=== PATIENT | male | born 1955 | race Caucasian/White ===

== ENCOUNTER → 2017-07-17 09:45 | Outpatient (CLI) | payer OTHER, SELFPAY ==
[2017-07-17 12:22] LABS: ALB/GLOB Ratio 1.2 RATIO (0.9-2.4); AST(SGOT) 15 U/L (15-37); Alanine Aminotransfer ALT/SGPT 30 U/L (16-61); Albumin, Serum 3.7 g/dL (3.2-5.0); Alkaline Phosphatase 62 U/L (45-117); Anion Gap 7 (5-15); BUN 15 mg/dL (7-18); BUN/Creat Ratio 19.5 RATIO (10-20); Calcium,Total 8.7 mg/dL (8.5-10.1); Chloride 105 mmol/L (98-107); Cholesterol 180 mg/dL (200); Creatinine, Serum 0.77 mg/dL (0.70-1.30); EST Glomerular Filtration Rate 109 mL/min (>60); Est Glom Filt Rate - Afr Amer 132 mL/min (>60); Globulin 3.1 g/dL (2.2-4.2); Glucose 82 mg/dL (74-106); High Density Lipoprotein 56 mg/dL; PSA,Total - Annual Screen 1.62 ng/mL (0.00-4.00); Potassium 4.1 mmol/L (3.5-5.1); Protein, Total 6.8 g/dL (6.4-8.2); Sodium Level 141 mmol/L (136-145); Thyroid Stim Hormone (TSH) 1.78 uIU/mL (0.358-3.74); Triglycerides 63 mg/dL; Very Low Density Lipoprotein 13 mg/dL (5-40)
[2017-07-17 12:23] LABS: Hemoglobin 15.4 g/dl (13.0-16.5); Mean Corp Hgb Conc 34.2 g/gl (32-36); Mean Corpuscular Volume 90.7 fL (80-94); Mean Platelet Vol. 10.3 fl (6.2-12.0); Platelet Count 210 K/mm3 (150-450); RBC Distribution Width CV 13.7 % (11.6-14.6); RBC Distribution Width SD 45.1 fl (35.1-43.9); Red Blood Count 4.96 M/mm3 (4.6-6.2); White Blood Count 4.7 K/mm3 (4.4-11.0)
[2017-07-17 12:27] LABS: Scan Indicated on CBC? Y/N NO
[2017-07-18 09:55] LABS: Vitamin B12 525 pg/mL (211-911)
== END ==
PROVIDERS: Family Provider Family Medicine; PCP Family Medicine; Visit Provider Family Medicine
DX: Z00.00 Encounter for general adult medical examination without abnormal findings (principal); N40.0 Benign prostatic hyperplasia without lower urinary tract symptoms; R53.83 Other fatigue
CPT/HCPCS: 36415; 80053; 80061; 82306; 82607; 84153; 84443; 85027; G0103

== ENCOUNTER → 2017-12-27 15:58 | Outpatient (CLI) | payer OTHER, SELFPAY ==
[2017-12-27 18:35] LABS: T4 Free Direct 0.98 ng/dL (0.76-1.46); Thyroid Stim Hormone (TSH) 1.43 uIU/mL (0.358-3.74)
== END ==
PROVIDERS: Family Provider Family Medicine; PCP Family Medicine; Referring Provider Internal Medicine Pulmonary Disease; Visit Provider Internal Medicine Pulmonary Disease
DX: G25.81 Restless legs syndrome (principal); G47.33 Obstructive sleep apnea (adult) (pediatric); G47.10 Hypersomnia, unspecified
CPT/HCPCS: 36415; 84439; 84443

== ENCOUNTER → 2019-06-12 16:22 | Outpatient (CLI) | payer OTHER, SELFPAY ==
--- NOTE | 2019-06-12 16:27 | RAD_ITS ---
STUDY: X-RAY - LEFT FOOT CLINICAL: Male, 63 years old. Left foot pain off and on x 1 year, shut it in a car door -- plantar/mid foot TECHNIQUE: Pain. view(s) of the foot. COMPARISON: None. FINDINGS: Normal talus, calcaneus, and tarsal bones. Normal visualized subtalar, talonavicular, calcaneocuboid, tarsal and tarsometatarsal articulations. Normal metatarsi. Normal metatarsophalangeal joint of the great toe. Normal tibial and fibular sesamoid bones. Normal interphalangeal joint of the great toe. Normal phalanges of the great toe. Normal second through fifth metatarsophalangeal joints. Normal interphalangeal joints and phalanges of the lesser toes. The soft tissue structures are unremarkable. There is no demonstrated fracture. RAD/Foot min 3 Views IMPRESSION: Normal x-ray examination of the foot. Electronically Signed: Tien Tomas MD at 16:40 EDT , Service support ,
== END ==
PROVIDERS: PCP Family Medicine; Referring Provider Family Medicine; Visit Provider Family Medicine
DX: M79.672 Pain in left foot (principal)
CPT/HCPCS: 73630

== ENCOUNTER → 2019-06-13 07:03 | Outpatient (CLI) | payer OTHER, SELFPAY ==
[2019-06-13 10:29] LABS: Anion Gap 5 (5-15); BUN 16 mg/dL (7-18); Calcium,Total 8.8 mg/dL (8.5-10.1); Chloride 104 mmol/L (98-107); Cholesterol 210 mg/dL (200); EST Glomerular Filtration Rate 103 mL/min (>60); Est Glom Filt Rate - Afr Amer 125 mL/min (>60); Glucose 96 mg/dL (74-106); High Density Lipoprotein 50 mg/dL; PSA,Total - Annual Screen 1.94 ng/mL (0.00-4.00); Potassium 3.7 mmol/L (3.5-5.1); Sodium Level 136 mmol/L (136-145); Triglycerides 99 mg/dL; Very Low Density Lipoprotein 20 mg/dL (5-40)
== END ==
PROVIDERS: PCP Family Medicine; Referring Provider Family Medicine; Visit Provider Family Medicine
DX: Z00.00 Encounter for general adult medical examination without abnormal findings (principal); N40.0 Benign prostatic hyperplasia without lower urinary tract symptoms
CPT/HCPCS: 36415; 80048; 80061; 84153; G0103

== ENCOUNTER → 2020-08-03 07:22 | Outpatient (CLI) | payer OTHER, SELFPAY ==
[2020-08-03 10:38] LABS: Anion Gap 3 (5-15); BUN 17 mg/dL (7-18); BUN/Creat Ratio 22.8 RATIO (10-20); Calcium,Total 9.2 mg/dL (8.5-10.1); Chloride 105 mmol/L (98-107); Cholesterol 208 mg/dL (200); Creatinine, Serum 0.75 mg/dL (0.70-1.30); EST Glomerular Filtration Rate 112 mL/min (>60); Est Glom Filt Rate - Afr Amer 135 mL/min (>60); Glucose 97 mg/dL (74-106); High Density Lipoprotein 52 mg/dL; Potassium 3.9 mmol/L (3.5-5.1); Sodium Level 141 mmol/L (136-145); Triglycerides 127 mg/dL; Very Low Density Lipoprotein 25 mg/dL (5-40)
== END ==
PROVIDERS: PCP Family Medicine; Referring Provider Family Medicine; Visit Provider Family Medicine
DX: N40.0 Benign prostatic hyperplasia without lower urinary tract symptoms (principal); Z13.1 Encounter for screening for diabetes mellitus; Z13.220 Encounter for screening for lipoid disorders
CPT/HCPCS: 36415; 80048; 80061; 84153; G0103

== ENCOUNTER → 2020-08-04 16:11 | Outpatient (CLI) | payer OTHER, SELFPAY ==
--- NOTE | 2020-08-04 16:14 | RAD_ITS ---
STUDY: X-RAY CHEST REASON FOR EXAM: Male, 65 years old. CHEST PAIN TECHNIQUE: PA and lateral views of the chest. COMPARISON: Comparison is made with prior study dated 07/13/2012. FINDINGS: There is hyperinflation of the lungs consistent with chronic obstructive lung disease (COPD). Scattered calcified granulomas. There is no demonstrated pleural abnormality. Normal size heart. Normal mediastinum and sánchez. There is prominence of the pulmonary hilar arteries without peripheral pulmonary vascular congestion, suggesting pulmonary hypertension. There is atherosclerotic calcification of the aortic arch with tortuosity. There are diffuse degenerative changes of the visualized thoracic spine. Normal visualized ribs, clavicles, and shoulders. Small hiatal hernia. RAD/Chest PA and Lateral IMPRESSION: Hyperinflation. Scattered calcified granulomas. Electronically Signed: Rajinder Pike MD at 11:06 EDT , Service support ,
== END ==
PROVIDERS: PCP Family Medicine; Referring Provider Family Medicine; Visit Provider Family Medicine
DX: R07.9 Chest pain, unspecified (principal)
CPT/HCPCS: 71046

== ENCOUNTER 2020-08-05 09:40 | Inpatient (IN) | payer OTHER, MEDICARE, SELFPAY ==
[2020-08-05] VITALS (19 sets, daily range): BP systolic 102–156; BP diastolic 57–80; PULSE 55–100; RESP 14–27; TEMP 36–37.3; O2SAT 93–100; BMI 29.4; BMI 29.5
--- NOTE | 2020-08-05 09:50 | EKG12_ITS ---
Test Reason : CP Blood Pressure : / mmHG Vent. Rate : 061 BPM Atrial Rate : 061 BPM P-R Int : 174 ms QRS Dur : 122 ms QT Int : 464 ms P-R-T Axes : 049 068 038 degrees QTc Int : 467 ms Normal sinus rhythm Non-specific intra-ventricular conduction delay Nonspecific ST abnormality Abnormal ECG Confirmed by CHRISTOPHE DERAS, THERESA ([id number]), publications editor ALEX GONZALEZ ([id number]) on 08/09/2020 2:27:18 PM Referred By: Kodak Gonzalez Confirmed By:THERESA SAEED MD
--- NOTE | 2020-08-05 09:51 | EDS_ITS ---
HPI History of Present Illness Chief Complaint: Chest Pain Informant: patient, spouse/S.O. and EMS Narrative Narrative: 65-year-old male presenting for the evaluation of chest pain via EMS. Patient states that about 45 minutes prior to arrival his chest pain began and was constant. No relief with 1 nitroglycerin and aspirin by EMS. Patient states that he was having it during the night intermittently that was keeping him up. He states that it is hard for him to describe what it feels like but believes it to be sharp. He states that over the past year he has had some chest discomfort with exertion. He saw his doctor yesterday and they did an EKG and chest x-ray. They state that the he is scheduling him for a stress test. Patient notes he had a stress test many years ago. He states he is treated for restless leg, BPH, and sleep apnea. He denies any recent illnesses. Patient had recent cholesterol screening showed a total cholesterol of 208 with a slightly elevated LDL level. He is a current smoker. [facility] Medical History BPH (benign prostatic hyperplasia) BPH (benign prostatic hyperplasia) Erectile disorder, acquired, situational, mild Erectile disorder, acquired, situational, mild CHARBEL (obstructive sleep apnea) Restless leg syndrome Allergy/AdvReac Type Severity Reaction Status Date / Time bee venom protein (honey bee) Allergy Angioedema Verified 08/05/20 09:50 cashew nut Allergy Anaphylaxis Verified 08/05/20 09:50 Pistacia Vera (Pistachio) Allergy Anaphylaxis Verified 08/05/20 09:50 Family History (Updated 08/05/20 @ 14:[address] Gregorio Wade DO) Other CAD (coronary artery disease) Social History household members: spouse Smoking Status: Current every day smoker substance use type: does not use ROS ROS ED Constitutional Constitutional ED: Denies chills or weight loss Eyes Eyes: Denies change in vision or diplopia ENT ENT ED: Denies ear pain, rhinorrhea or sore throat Cardiovascular Cardiovascular: Reports chest pain; Denies orthopnea, palpitations or racing heartbeat Respiratory/Chest Respiratory/Chest: Reports dyspnea and dyspnea on exertion; Denies cough or orthopnea Gastrointestinal Gastrointestinal: Denies abdominal pain, diarrhea, nausea or vomiting Genitourinary Genitourinary ED: Denies dysuria, hematuria or urinary frequency Musculoskeletal Musculoskeletal: Denies arthralgias or myalgias Integumentary Denies abscess or rash Neurologic Neurologic: Denies headache(s) or weakness Psychiatric Psychiatric: Denies anxiety, depression, suicidal ideation or suicidal thoughts Endocrine Endocrinology: Denies polydipsia, polyphagia or polyuria Allergic/Immunologic Allergic/Immunologic ED: Denies mouth swelling, tongue swelling or urticaria EXAM Physical Exam Const Vital Signs: 08/05/20 09:41 08/05/20 10:01 08/05/20 10:06 Temperature 96.8 F L Temperature Source Temporal Pulse Rate 100 60 70 Respiratory Rate 22 H Blood Pressure 156/74 H 143/80 H 148/80 H Blood Pressure Mean 101 Pulse Ox 99 Oxygen Delivery Method Room Air 08/05/20 10:11 Temperature Temperature Source Pulse Rate 64 Respiratory Rate 14 Blood Pressure 152/78 H Blood Pressure Mean 102 Pulse Ox 100 Oxygen Delivery Method Room Air Positive well nourished and well developed General Appearance ED: well developed and other Patient lying in the bed holding his chest appears uncomfortable HEENT Reports normocephalic, head/scalp atraumatic and moist mucous membranes Eyes PERRL and EOMs intact bilaterally Neck no lymphadenopathy, supple and no JVD Resp normal respiratory effort and clear to auscultation bilaterally Cardio regular rate, regular rhythm and no murmurs GI normal to inspection, nondistended, normoactive bowel sounds and non-tender Palpation: soft Back/Spine no CVA tenderness and normal ROM Extremity normal to inspection General Extremety ED: Negative for edema General Extremity: Negative for edema Neuro oriented x3 and CN's II-XII intact bilaterally Sensorium / Orientation: alert Motor Exam: strength 5/5 throughout Psych mental status grossly normal Mood & Affect: Negative for depressed or tearful Skin no rashes or lesions noted and no wounds MDM MDM MDM Narrative Medical decision making narrative: The patient chest x-ray on my interpretation shows no acute process. Normal mediastinal silhouette. Patient received a nitro series which minimally improved his pain. He also received a dose of morphine. His troponin returns at 0.11. Normal creatinine. White count at 7.6. Patient has already received aspirin. I spoke with on-call community service aide Dr. Gonzalez. He has come to the emergency department to see the patient. Patient will receive a dose of heparin additional dose of morphine. Plan will be to take him directly to the [facility]. Lab Data Attestation: I reviewed the patient's lab results. Labs: Laboratory Results - last 24 hr 08/05/20 08/05/20 08/05/20 09:30 09:30 09:30 WBC 7.6 RBC 4.99 Hgb 15.1 Hct 44.5 MCV 89.2 MCH 30.3 MCHC 33.9 RDW Std Deviation 43.5 RDW Coeff of César 13.2 Plt Count 217 MPV 10.3 Immature Gran % (Auto) 0.300 Neut % (Auto) 62.7 Lymph % (Auto) 26.4 [place] % (Auto) 9.4 Eos % (Auto) 0.8 Baso % (Auto) 0.4 Absolute Neuts (auto) 4.8 Absolute Lymphs (auto) 2.02 Nucleated RBC % 0 PT 11.9 INR 0.9 APTT 24.3 D-Dimer Quant (PE/DVT) <= 0.27 Sodium 138 Potassium 3.3 L Chloride 103 Carbon Dioxide 26.0 Anion Gap 9 BUN 18 Creatinine 0.86 Estim Creat Clear Calc 93.99 Est GFR (MDRD) Af Amer 115 Est GFR (MDRD) Non-Af 95 BUN/Creatinine Ratio 20.9 H Glucose 149 H Calcium 9.1 Magnesium 2.3 Total Bilirubin 0.90 AST 16 ALT 27 Alkaline Phosphatase 70 Troponin I 0.110 H Total Protein 7.0 Albumin 3.8 Globulin 3.2 Albumin/Globulin Ratio 1.2 Lipase 68 L Radiography Diagnostic Testing: Radiology Impression Chest X-Ray 08/05/20 09:59 IMPRESSION: Hyperinflation. Prominent central pulmonary arteries. Electronically Signed: Rajinder Pike MD at 10:13 EDT , Service support , EKG Initial EKG: Attestation: I personally reviewed and interpreted this EKG as follows: Comments: Initial EKG performed at 0943 hours demonstrates a normal sinus rhythm with nonspecific ST abnormality. Rate is 61 bpm. There is some slight depression noted in V3. Follow-up EKG: Attestation: I personally reviewed and interpreted this EKG as follows: Comments: Repeat EKG demonstrates a sinus rhythm at a rate of 70. The ST depression in V3 appears improved. Critical Care Time Critical care time (excluding procedures): 30-74 minutes (35 minutes), Discussing w/Patient &/or Family/Full Fashioned Garment Knitter, Discussing w/Consultants, Arranging Admission or Transfer and Performing Direct Patient Care at Bedside Discharge Plan Triage Chief Complaint: Chest Pain ED Provider: Ralph Romero Dx/Rx/DC Orders Clinical Impression: NSTEMI, initial episode of care Primary Care Provider: Isrrael Anna Disposition Disposition: Acute Care Hospital [facility] Discharge Date/Time: 08/05/20 11:01
[2020-08-05 09:58] LABS: Absolute Lymphocyte Count 2.02 X10^3/uL (0.83-4.51); Absolute Neutrophil Count 4.8 X10^3/uL (2.0-7.7); Basophil# 0.03 X10^3/uL; Basophil% 0.4 % (0-1); Eosinophil# 0.06 X10^3/uL; Eosinophils% 0.8 % (0-5); Hematocrit 44.5 % (40-54); Hemoglobin 15.1 g/dL (13.0-16.5); Lymphocyte # 2.02 X10^3/ul (0.83-4.51); Lymphocyte % 26.4 % (19-41); Mean Corp Hgb Conc 33.9 g/dL (32-36); Mean Corpuscular Hgb 30.3 pg (27.0-32.0); Mean Corpuscular Volume 89.2 fL (80-94); Mean Platelet Vol. 10.3 fl (6.2-12.0); Monocyte# 0.72 X10^3/uL; Monocyte% 9.4 % (0-10); NRBC Flagged by Analyzer 0 % (0-5); Neutrophil # 4.79 X10^3/uL (2.7-7.7); Neutrophil % 62.7 % (47-70); Platelet Count 217 K/mm3 (150-450); RBC Distribution Width CV 13.2 % (11.6-14.6); RBC Distribution Width SD 43.5 fl (35.1-43.9); Red Blood Count 4.99 M/mm3 (4.6-6.2); White Blood Count 7.6 K/mm3 (4.4-11.0)
--- NOTE | 2020-08-05 09:59 | RAD_ITS ---
STUDY: X-RAY CHEST REASON FOR EXAM: Male, 65 years old. Chest pain TECHNIQUE: Single AP portable view of the chest. COMPARISON: Comparison is made with prior study dated 08/04/2020. FINDINGS: EKG electrodes are seen. There is hyperinflation of the lungs consistent with chronic obstructive lung disease (COPD). There is no demonstrated pleural abnormality. Normal size heart. Normal mediastinum and sánchez. There is prominence of the pulmonary hilar arteries without peripheral pulmonary vascular congestion, suggesting pulmonary hypertension. There is atherosclerotic calcification of the aortic arch with tortuosity. Normal visualized thoracic spine. Normal visualized ribs, clavicles, and shoulders. There is no demonstrated abnormality of the visualized soft tissue structures of the upper abdomen. RAD/Chest 1 View (Portable) IMPRESSION: Hyperinflation. Prominent central pulmonary arteries. Electronically Signed: Rajinder Pike MD at 10:13 EDT , Service support ,
[2020-08-05] MEDS: Nitroglycerin SL (ED/IMG/CATH) 0.4 MG TABLET SL ×2 (10:01→10:06)
[2020-08-05] MEDS: Ondansetron 4 MG/2 ML Vial IV (10:02)
--- NOTE | 2020-08-05 10:03 | EKG12_ITS ---
Test Reason : REPEAT Blood Pressure : / mmHG Vent. Rate : 070 BPM Atrial Rate : 070 BPM P-R Int : 186 ms QRS Dur : 114 ms QT Int : 450 ms P-R-T Axes : 070 069 038 degrees QTc Int : 486 ms Normal sinus rhythm Nonspecific ST abnormality Prolonged QT Abnormal ECG Confirmed by CHRISTOPHE DERAS, THERESA ([id number]), commercial production editor ALEX GONZALEZ ([id number]) on 08/09/2020 2:28:17 PM Referred By: Kodak Gonzalez Confirmed By:THERESA SAEED MD
[2020-08-05 10:04] LABS: International Normalized Ratio 0.9; Partial Thromboplast Time 24.3 Seconds (24.1-36.2); Prothrombin Time (Protime)PT. 11.9 SECONDS (11.7-14.9)
[2020-08-05] MEDS: Morphine 4 MG/ML Syringe IV (10:08)
[2020-08-05 10:13] LABS: ALB/GLOB Ratio 1.2 RATIO (0.9-2.4); AST(SGOT) 16 U/L (15-37); Alanine Aminotransfer ALT/SGPT 27 U/L (16-61); Albumin, Serum 3.8 g/dL (3.2-5.0); Alkaline Phosphatase 70 U/L (45-117); Anion Gap 9 (5-15); BUN 18 mg/dL (7-18); BUN/Creat Ratio 20.9 RATIO (10-20); Calcium,Total 9.1 mg/dL (8.5-10.1); Chloride 103 mmol/L (98-107); Creatinine, Serum 0.86 mg/dL (0.70-1.30); EST Glomerular Filtration Rate 95 mL/min (>60); Est Glom Filt Rate - Afr Amer 115 mL/min (>60); Estimated Creatinine Clearance 93.99 ml/min; Globulin 3.2 g/dL (2.2-4.2); Glucose 149 mg/dL (74-106); Lipase 68 U/L (73-393); Magnesium 2.3 mg/dL (1.6-2.6); Potassium 3.3 mmol/L (3.5-5.1); Sodium Level 138 mmol/L (136-145)
--- NOTE | 2020-08-05 10:40 | EKG12_ITS ---
Test Reason : AM EKG Blood Pressure : / mmHG Vent. Rate : 068 BPM Atrial Rate : 068 BPM P-R Int : 182 ms QRS Dur : 126 ms QT Int : 448 ms P-R-T Axes : 057 097 142 degrees QTc Int : 476 ms Normal sinus rhythm Right bundle branch block T wave abnormality, consider lateral ischemia Abnormal ECG When compared with ECG of 06-AUG-2020 05:28, MANUAL COMPARISON REQUIRED, DATA IS UNCONFIRMED Confirmed by DEANNE DERAS, IRWIN ([id number]), editor sound ALEX GONZALEZ ([id number]) on 08/10/2020 9:45:28 AM Referred By: Kodak Gonzalez Confirmed By:IRWIN ALICEA MD
[2020-08-05 10:47] LABS: D-Dimer Quantitative (DVT/PE) <= 0.27 FEU/ug/m (0.27-0.49)
[2020-08-05] MEDS: Heparin Injection (Vial) 5,000 UNIT/ML VIAL 5000 UNIT IV (10:48)
--- NOTE | 2020-08-05 10:54 | NURSING ---
DR RICHARD DAMON
--- NOTE | 2020-08-05 10:59 | NURSING ---
SECURITY RISK ANALYST SANJEEV/RICHARD ACS
--- NOTE | 2020-08-05 14:01 | ECHOCS_ITS ---
Reason For Study: CAD/ASHD Procedure This was a 2D Doppler, Color Flow transthoracic echocardiogram. Contrast injection was performed. Patient scanned supine due to sheath. Exam performed portable in ICU/CCU. Left Ventricle Normal left ventricle. Paced septal motion. The estimated ejection fraction is EF 50-55% %. Right Ventricle Mildly dilated right ventricle. Mild global right ventricular systolic dysfunction. Atria Normal left atrium. Normal right atrium. Mitral Valve The mitral valve is structurally normal. No prolapse or stenosis seen. Tricuspid Valve Normal tricuspid valve. Aortic Valve Normal aortic valve. Pulmonic Valve The pulmonic valve is not well visualized. Great Vessels Normal aortic root. Pericardium/Pleural No pericardial effusion. Medication Diluted definity 3ml given slow IV push to enhance endocardial definition. MMode/2D Measurements & Calculations LVIDd: 4.1 cm IVSd: 1.3 cm Ao root diam: 3.9 cm LVIDs: 2.2 cm LVPWd: 0.98 cm RVDd: 4.9 cm FS: 46.2 % LAV(MOD-bp): 35.5 ml LVAd ap4: 41.7 cm2 SV(MOD-sp4): 75.2 ml LAV(MOD-bp) Indexed: 16.1 ml/m2 LVLd ap4: 9.5 cm LAV(MOD-sp2): 39.6 ml EDV(MOD-sp4): 147.6 ml LAV(MOD-sp4): 29.9 ml EDV(sp4-el): 155.1 ml LVAs ap4: 26.6 cm2 LVLs ap4: 8.3 cm ESV(MOD-sp4): 72.4 ml ESV(sp4-el): 72.0 ml EF(MOD-sp4): 50.9 % EF(sp4-el): 53.6 % SV(sp4-el): 83.1 ml LA A4 area: 13.2 cm2 LA dimension(2D): 3.8 cm RA A4 area: 13.6 cm2 Doppler Measurements & Calculations MV E max dudley: 42.7 cm/sec Lat Peak E' Dudley: 10.6 cm/sec Med Peak E' Dudley: 8.0 cm/sec MV A max dudley: 53.6 cm/sec E/E' lat: 4.0 E/E' med: 5.3 MV E/A: 0.80 Ao V2 max: 107.8 cm/sec LV V1 max: 95.5 cm/sec PA V2 max: 61.9 cm/sec Ao max P.7 mmHg LV V1 max P.6 mmHg Ao V2 mean: 70.5 cm/sec Ao mean P.2 mmHg Ao V2 VTI: 21.8 cm ECHO/Echo Complete W/ Contrast Interpretation Summary The estimated ejection fraction is EF 50-55% %. Normal LV systolic function Ordering Physician: Kodak Gonzalez Referring Physician: Lawrence Anna Performed By: Pushpa Gonzalez, LAST, RVT
--- NOTE | 2020-08-05 14:30 | EKG12_ITS ---
Test Reason : PCI Blood Pressure : / mmHG Vent. Rate : 064 BPM Atrial Rate : 064 BPM P-R Int : 184 ms QRS Dur : 126 ms QT Int : 434 ms P-R-T Axes : 061 089 059 degrees QTc Int : 447 ms Normal sinus rhythm Right bundle branch block Abnormal ECG When compared with ECG of 05-AUG-2020 10:40, MANUAL COMPARISON REQUIRED, DATA IS UNCONFIRMED Confirmed by DEANNE DERAS, IRWIN ([id number]), story editor ALEX GONZALEZ ([id number]) on 08/10/2020 9:45:51 AM Referred By: Kodak Gonzalez Confirmed By:IRWIN ALICEA MD
--- NOTE | 2020-08-05 14:43 | HP.PCM.HOS_ITS ---
HPI - General General Date of Admission: 08/05/20 HPI Narrative GUCCI MENDOZA, is a 65 M who presents chest pain. He been having exertional chest for a long period. He would stop, then it would resolve. Today, pain was more intense in center of his chest. Associated with diaphoresis and shortness of breath. He has never pain like this before. He presented to the ED and had sligtly eleveated troponin. [facility] to the [facility] Medical History BPH (benign prostatic hyperplasia) BPH (benign prostatic hyperplasia) Erectile disorder, acquired, situational, mild Erectile disorder, acquired, situational, mild CHARBEL (obstructive sleep apnea) Restless leg syndrome Allergy/AdvReac Type Severity Reaction Status Date / Time bee venom protein (honey bee) Allergy Angioedema Verified 08/05/20 09:50 cashew nut Allergy Anaphylaxis Verified 08/05/20 09:50 Pistacia Vera (Pistachio) Allergy Anaphylaxis Verified 08/05/20 09:50 Family History (Updated 08/05/20 @ 14:[address] Gregorio Wade DO) Other CAD (coronary artery disease) Social History household members: spouse Smoking Status: Current every day smoker substance use type: does not use ROS ROS Narrative All review of systems were negative except as mentioned above in the history of present illness and the other review of systems. Patient states that he has lost 7 pounds recently unintentional. Vital Signs Vital Signs Vital Signs: 08/05/20 09:41 08/05/20 10:01 08/05/20 10:06 Temperature 36.0 C L Temperature Source Temporal Pulse Rate 100 60 70 Respiratory Rate 22 H Blood Pressure 156/74 H 143/80 H 148/80 H Blood Pressure Mean 101 Pulse Ox 99 Oxygen Delivery Method Room Air 08/05/20 10:11 08/05/20 10:59 Temperature 36.1 C L Temperature Source Temporal Pulse Rate 64 66 Respiratory Rate 14 20 H Blood Pressure 152/78 H 135/77 H Blood Pressure Mean 102 96 Pulse Ox 100 96 Oxygen Delivery Method Room Air Room Air Physical Exam Narrative Lying in bed. Currently on bedrest. Const alert General Appearance: cooperative Neck no lymphadenopathy Resp normal respiratory effort and clear to auscultation bilaterally Cardio regular rate, regular rhythm, S1 normal heart sound and S2 normal heart sound GI normal to inspection, nondistended, normoactive bowel sounds, non-tender and non-distended Extremity normal to inspection Neuro Sensorium / Orientation: awake and alert Psych affect normal Lab / Micro Data Result Diagrams: 08/05/20 09:30 08/05/20 09:30 Labs: Laboratory Results - last 24 hr 08/05/20 08/05/20 08/05/20 09:30 09:30 09:30 WBC 7.6 RBC 4.99 Hgb 15.1 Hct 44.5 MCV 89.2 MCH 30.3 MCHC 33.9 RDW Std Deviation 43.5 RDW Coeff of César 13.2 Plt Count 217 MPV 10.3 Immature Gran % (Auto) 0.300 Neut % (Auto) 62.7 Lymph % (Auto) 26.4 [place] % (Auto) 9.4 Eos % (Auto) 0.8 Baso % (Auto) 0.4 Absolute Neuts (auto) 4.8 Absolute Lymphs (auto) 2.02 Nucleated RBC % 0 PT 11.9 INR 0.9 APTT 24.3 D-Dimer Quant (PE/DVT) <= 0.27 Sodium 138 Potassium 3.3 L Chloride 103 Carbon Dioxide 26.0 Anion Gap 9 BUN 18 Creatinine 0.86 Estim Creat Clear Calc 93.99 Est GFR (MDRD) Af Amer 115 Est GFR (MDRD) Non-Af 95 BUN/Creatinine Ratio 20.9 H Glucose 149 H Calcium 9.1 Magnesium 2.3 Total Bilirubin 0.90 AST 16 ALT 27 Alkaline Phosphatase 70 Troponin I 0.110 H Total Protein 7.0 Albumin 3.8 Globulin 3.2 Albumin/Globulin Ratio 1.2 Lipase 68 L Radiology Impression Chest X-Ray 08/05/20 09:59 IMPRESSION: Hyperinflation. Prominent central pulmonary arteries. Electronically Signed: Rajinder Pike MD at 10:13 EDT , Service support , Assessment & Plan Assessment/Plan (1) NSTEMI, initial episode of care: PLAN: 1. Non-ST patient myocardial infarction * Patient underwent two-vessel MICROWAVE ENGINEER * Currently on bedrest with a femoral sheath and patient currently on Integrilin drip. * Continue aspirin, atorvastatin, carvedilol, lisinopril and ticagrelor * Echo ordered * Management per cardiology 2. Obstructive sleep apnea * Utilize CPAP. I am okay with the patient having CPAP brought in by his 3. Tobacco abuse * Patient smokes over a pack per day * He states that he is definitely going to quit * Hold off on nicotine patch replacement given his current status 4. VTE prophylaxis: Moderate to high risk. SCDs. Avoid chemical prophylaxis while he is currently on Integrilin. 5. Advanced care planning: Discussed with patient. Patient wishes to be full CODE STATUS at this time. 6. Health maintenance: Patient has not had the COVID-19 vaccination. I strongly encouraged that he get that upon discharge. Explained that there is no current contraindication with his procedure and or underlying cardiac disease for the vaccination. Explained to him that he could fare very poorly given his current cardiac status if you were to contract COVID-19. Visit Charges Inpatient E&M: 88715 Init Hosp L3
--- NOTE | 2020-08-05 15:31 | CASEMGMT ---
According to the [facility] website, the following are in-network tertiary facilities: [facility], [facility], [facility], [facility], [facility], [facility], [facility], [facility], and . Buddy NEAL CM
--- NOTE | 2020-08-05 15:32 | PCI.CARDCATH ---
PCI Cardiac Cath Report PCI Report: Procedure performed; 1. Successful PCI of occluded proximal D1, with predilatation and placement of a drug-eluting stent resolute 2.5 x 22 mm Improvement of PALOMA flow from PALOMA 0 to PALOMA III flow in D1. 2. Successful PCI of the distal LAD with reduction of stenosis from 90% to 0% and maintaining PALOMA-3 flow, using drug-eluting stent 2.5 x 14 mm. 3. Successful PCI of the mid LAD with predilatation, followed by placement of a drug-eluting stent 3 x 18 mm resolute, postdilated with 3 x 15 mm NC balloon 4. Left heart catheterization. Preprocedure diagnosis; 65-year-old patient presented to the ER at [facility] complaining of severe retrosternal chest pain, evidently this symptom has been chronic for nearly 1 year however it got worse progressively Last night he had severe retrosternal chest pain, he went to work today and continues to have symptoms of chest pain and brought into the hospital by the . In the ER he was given heparin aspirin morphine and nitroglycerin however he continued to have symptoms of chest pain. Patient also heavy smoker, according to history from he had a history of obstructive sleep apnea. Noted there were change in the EKG with ST depression noted in V3 there is no ST elevation noted. An initial set of cardiac enzyme/high sensitive troponin I is within normal. Consent; Risk and benefit of the procedure explained detail to the patient elected to proceed informed consent obtained. Procedure in detail; Patient brought to the Rail Transportation [employer], right groin prepped and draped in the usual sterile fashion and we proceed with access from the right common femoral artery, 6 Belarusian sheath placed under fluoroscopic guidance Then will proceed with diagnostic catheter 5 Belarusian JL4 selective angiography of left colostomy obtained, following this catheter exchanged for 5 Belarusian JR4 catheter and selective angiographic view of right transfemoral plan. Following this all angiography were studied The culprit lesion identified as occluded proximal D1/moderate size vessel. We will proceed with interventional plan Patient was given heparin and Integrilin, Brilinta and aspirin Interventional equipment used; 1. 6 Belarusian 3.5 XB guide 2. 0.014 run-through extra floppy 180 cm straight wire 3. 0.014 BMW universal straight 190 cm 4. Euphora balloon 2.5 x 15, 2 x 20 mm 5. NC Euphora 3 x 15 balloon. Finding of coronary angiography; 1. Left main coronary calcified with nonobstructive atherosclerosis involving the distal left main of around 20%. Left main coronary artery bifurcating to LAD and left circumflex. 2. LAD large vessel with extensive calcification involving the proximal LAD as well as a very diagonal branch The mid LAD had 70% stenosis, D1 moderate-sized vessel around 2.5 mm occluded proximally Segmental lesions involving the mid LAD around 50 to 60% The distal LAD had 90% stenosis. 3. Left circumflex artery is small to moderate in size with no obstructive atherosclerosis 4. Right coronary artery is a large dominant proximal to mid RCA had eccentric atherosclerosis of around 50% RPDA has proximal and distal stenosis diffuse atherosclerosis of around 70%, a small vessel. And the posterolateral branch had diffuse nonobstructive atherosclerosis. We proceed with the guide catheter engaged the left colon ostium without difficulty then will proceed with run-through guidewire across the lesion in the diagonal branch predilated using 2.5 there was a dissection at the site and then followed by placement of a drug-eluting stent 2.5 x 22 mm to the proximal D1 This patient had extensive coronary atherosclerosis with calcified vessel extending from the left main to the mid and distal LAD We will proceed with the BMW wire across the lesion in the LAD. The distal LAD and placed a drug-eluting stent 2.5 x 40 mm In the mid LAD at the site of the diagonal will place 3 x 18 mm drug-eluting stent resolute, followed by postdilatation using 3 x 15 mm NC balloon. Following this selective right common femoral artery angiography obtained, noted patient had significant atherosclerosis involving the proximal SFA and also has symptoms of intermittent convocation. Suture applied to right common femoral artery sheath which upgraded to a 7 Belarusian. Due to oozing from the site and kept on IV heparin over the night and also patient started on Integrilin drip as well as Integrilin infusion Generalized the risk of the contrast echocardiogram will be performed in the morning to evaluate and assess LV function. Patient tolerated the procedure very well with no complication in the Rail Transportation Operator. Recommendation and plan; 1. Patient will be on dual antiplatelet therapy with Brilinta 90 mg twice daily/low-dose aspirin 81 mg for 1 year and to continue low-dose aspirin indefinitely 2. Patient advised cessation of smoking 3. Patient started on statin atorvastatin 40 mg, AZALEA inhibitor lisinopril 5 mg, beta-angela carvedilol 3.125 mg twice daily as tolerated by the blood pressure. 4. Patient had atherosclerosis noted on right common femoral artery angiography and he had bilateral intermittent claudication and will need evaluation by the vascular surgeon as an outpatient. There is no complication in the Rail Transportation Operator Kodak Gonzalez MD,FACC,[facility]
[2020-08-05 15:57] LABS: Hemoglobin 14.5 g/dL (13.0-16.5); Mean Corp Hgb Conc 33.7 g/dL (32-36); Mean Corpuscular Hgb 30.1 pg (27.0-32.0); Mean Corpuscular Volume 89.2 fL (80-94); Mean Platelet Vol. 10.3 fl (6.2-12.0); Platelet Count 196 K/mm3 (150-450); RBC Distribution Width CV 13.1 % (11.6-14.6); RBC Distribution Width SD 42.9 fl (35.1-43.9); Red Blood Count 4.82 M/mm3 (4.6-6.2); White Blood Count 9.5 K/mm3 (4.4-11.0)
[2020-08-05] MEDS: 0.9% Normal Saline 1,000 ML 150 ML IV (16:03)
[2020-08-05] MEDS: 0.9% Saline Lock 10 ML Syringe IV (21:17)
[2020-08-05] MEDS: oxyCODONE 5 MG Tablet 10 MG PO (21:18)
[2020-08-05] MEDS: Carvedilol 3.125 MG TABLET PO (21:18)
[2020-08-05] MEDS: Atorvastatin Calcium 40 MG Tablet PO (21:19)
--- NOTE | 2020-08-05 21:57 | NURSING ---
1900- NS running at 50 ml/hr current order for NS @150 x 1 L. Infusion time in computer is off and current infusion is still infusing.
[2020-08-06] VITALS (29 sets, daily range): BP systolic 102–126; BP diastolic 55–80; PULSE 58–70; RESP 14–24; TEMP 36.6–37.2; O2SAT 91–98
[2020-08-06] MEDS: oxyCODONE 5 MG Tablet 10 MG PO ×4 (01:27→21:51)
[2020-08-06 03:47] LABS: Hematocrit 40.1 % (40-54); Hemoglobin 13.2 g/dL (13.0-16.5); Mean Corp Hgb Conc 32.9 g/dL (32-36); Mean Corpuscular Hgb 29.9 pg (27.0-32.0); Mean Corpuscular Volume 90.7 fL (80-94); Mean Platelet Vol. 10.2 fl (6.2-12.0); Platelet Count 173 K/mm3 (150-450); RBC Distribution Width CV 13.5 % (11.6-14.6); RBC Distribution Width SD 45.5 fl (35.1-43.9); Red Blood Count 4.42 M/mm3 (4.6-6.2); White Blood Count 9.4 K/mm3 (4.4-11.0)
[2020-08-06 04:05] LABS: ALB/GLOB Ratio 1.1 RATIO (0.9-2.4); AST(SGOT) 176 U/L (15-37); Alanine Aminotransfer ALT/SGPT 53 U/L (16-61); Alkaline Phosphatase 54 U/L (45-117); Anion Gap 5 (5-15); BUN 14 mg/dL (7-18); BUN/Creat Ratio 18.3 RATIO (10-20); Calcium,Total 8.2 mg/dL (8.5-10.1); Chloride 109 mmol/L (98-107); Cholesterol 172 mg/dL (200); Creatinine, Serum 0.76 mg/dL (0.70-1.30); EST Glomerular Filtration Rate 109 mL/min (>60); Est Glom Filt Rate - Afr Amer 132 mL/min (>60); Estimated Creatinine Clearance 106.36 ml/min; Globulin 2.7 g/dL (2.2-4.2); Glucose 114 mg/dL (74-106); High Density Lipoprotein 59 mg/dL; Potassium 3.8 mmol/L (3.5-5.1); Protein, Total 5.7 g/dL (6.4-8.2); Sodium Level 140 mmol/L (136-145); Triglycerides 90 mg/dL; Very Low Density Lipoprotein 18 mg/dL (5-40)
--- NOTE | 2020-08-06 07:54 | CRPHASE1 ---
Patient Communication PHII Cardiac Rehab Discussed with Patient:: Yes Guide to Cardiac Rehab Given to Patient:: Yes Cardiac Rehab Facility Choice List Given to Patient:: Yes Choice Program [facility] PHII:: Communication Given to CR Single Pointed Operator:: Kodak Gonzalez Phase II Cardiac Rehab:: Yes Sessions:: 36 sessions - 3 days/wk, 12 weeks Cardiac Rehabilitation Info Cardiac Rehabilitation Program Information: Cardiac Rehabilitation is important for patients like you who are recovering from a heart problem. Cardiac rehabilitation programs are recognized as integral to the continued care of the patient with coronary heart disease. The cardiac rehabilitation program is designed to optimize a patient's physical, psychological, and social functioning. Health college and career counselor work in cardiac rehabilitation programs and assist you with getting the treatments you need to get stronger and healthier - like exercise, healthy eating habits, and medications. Cardiac rehabilitation has been show to help people with heart problems live longer and have better life enjoyment than people who do not go to cardiac rehabilitation. Please contact the Cardiac Rehabilitation Program at [facility] at in two weeks if you have not heard from them.
--- NOTE | 2020-08-06 07:55 | CRPH1.INST_ITS ---
General Education CAD and cardiac anatomy and function:: Patient communicates acknowledgment, Needs reinforcement Explanation of diagnoses and procedures:: Patient communicates acknowledgment, Needs reinforcement Sign/Symptoms of IL:: Patient communicates acknowledgment, Needs reinforcement Antiplatelet therapy: Patient communicates acknowledgment, Needs reinforcement Proper use of NTG-SL: Patient communicates acknowledgment, Needs reinforcement Emergency procedures and activation of EMS: Patient communicates acknowledgment, Needs reinforcement Compliance of all prescribed medications: Patient communicates acknowledgment, Needs reinforcement Smoking Patient Nicotine/Smoking Risk Factors Are:: Cigarettes Recommendations Include:: Smoking cessation strategies/Smoking packet, Participation in a smoking cessation program Nicotine/Smoking Response Code:: Patient communicates acknowledgment, Needs re inforcement Dyslipidemia Patient Dyslipidemia Risk Factors Are:: Total Cholesterol, Triglycerides, HDL, LDL Recommendations Include:: Lipid profile provided, Reviewed NCEP/ATP guidelines, Therapeutic Lifestyle Change dietary guidelines Dyslipidemia Response Code:: Patient communicates acknowledgment, Needs re inforcement Overweight/Obesity Patient Overweight/Obesity Risk Factors Are:: Overweight = 26-29 Recommendations Include:: Weight loss of 5-10%, Reduced calorie diet, Exercise 5-7 times/week Overweight/Obesity:: Patient communicates acknowledgment, Needs reinforcement Hypertension Recommendations Include:: Maintain BP <130/85, DASH dietary guidelines, Decrease/maintain normal body weight, Moderation of ETOH Hypertension:: Patient communicates acknowledgment, Needs reinforcement Heart Disease Patient Heart Disease Risk Factors Are:: Family history of heart disease < 65 years old Recommendations Include:: Educated family members of their risk Heart Disease Response Code:: Patient communicates acknowledgment, Needs reinforcement Diabetes Patient Diabetes Risk Factors Are:: No documented hx of diabetes Sedentary Patient Sedentary Risk Factors Are:: Lack of regular exercise Recommendations Include:: Aerobic exercise 5-7 times/week for 20-30 minutes continuously, Benefits of regular exercise, Discussed home walking program, Monitored Outpatient Cardiac Rehab Sedentary Response Code:: Patient communicates acknowledgment, Needs reinforcement
--- NOTE | 2020-08-06 09:35 | PCM.PN.CARD ---
Subjective Subjective Patient seen today at bedside and discuss cardiac care with the nursing staff and the medical team. Stable clinically no symptoms of chest pain. Objective Data Vital Signs: Vital Signs Temp Pulse Resp BP Pulse Ox 98.5 F 58 L 16 119/73 95 08/06/20 07:00 08/06/20 09:00 08/06/20 09:00 08/06/20 09:00 08/06/20 09:00 Oxygen Delivery Method Room Air Weight: 218 lb 4.122 oz Body Mass Index (BMI) 29.5 Intake & Output: Intake and Output for Last 24 Hours 08/04/20 08/05/20 08/06/20 23:59 23:59 23:59 Intake Total 1472.48 / 1472.48 Output Total 1050 / 1050 925 / 925 Balance -1050 / -731.24 547.48 / 547.48 Lab / Micro Data Result Diagrams: 08/06/20 03:40 08/06/20 03:40 Labs: Laboratory Results - last 24 hr 08/05/20 08/05/20 08/05/20 09:30 09:30 09:30 WBC 7.6 RBC 4.99 Hgb 15.1 Hct 44.5 MCV 89.2 MCH 30.3 MCHC 33.9 RDW Std Deviation 43.5 RDW Coeff of César 13.2 Plt Count 217 MPV 10.3 Immature Gran % (Auto) 0.300 Neut % (Auto) 62.7 Lymph % (Auto) 26.4 Adams % (Auto) 9.4 Eos % (Auto) 0.8 Baso % (Auto) 0.4 Absolute Neuts (auto) 4.8 Absolute Lymphs (auto) 2.02 Nucleated RBC % 0 PT 11.9 INR 0.9 APTT 24.3 D-Dimer Quant (PE/DVT) <= 0.27 Sodium 138 Potassium 3.3 L Chloride 103 Carbon Dioxide 26.0 Anion Gap 9 BUN 18 Creatinine 0.86 Estim Creat Clear Calc 93.99 Est GFR (MDRD) Af Amer 115 Est GFR (MDRD) Non-Af 95 BUN/Creatinine Ratio 20.9 H Glucose 149 H Calcium 9.1 Magnesium 2.3 Total Bilirubin 0.90 AST 16 ALT 27 Alkaline Phosphatase 70 Troponin I 0.110 H Total Protein 7.0 Albumin 3.8 Globulin 3.2 Albumin/Globulin Ratio 1.2 Triglycerides Cholesterol LDL Cholesterol VLDL Cholesterol HDL Cholesterol Lipase 68 L 08/05/20 08/05/20 08/05/20 15:35 15:35 18:20 WBC 9.5 RBC 4.82 Hgb 14.5 Hct 43.0 MCV 89.2 MCH 30.1 MCHC 33.7 RDW Std Deviation 42.9 RDW Coeff of César 13.1 Plt Count 196 MPV 10.3 Immature Gran % (Auto) Neut % (Auto) Lymph % (Auto) Adams % (Auto) Eos % (Auto) Baso % (Auto) Absolute Neuts (auto) Absolute Lymphs (auto) Nucleated RBC % PT INR APTT D-Dimer Quant (PE/DVT) Sodium Potassium Chloride Carbon Dioxide Anion Gap BUN Creatinine Estim Creat Clear Calc Est GFR (MDRD) Af Amer Est GFR (MDRD) Non-Af BUN/Creatinine Ratio Glucose Calcium Magnesium Total Bilirubin AST ALT Alkaline Phosphatase Troponin I 82.400 H* 110.000 H* Total Protein Albumin Globulin Albumin/Globulin Ratio Triglycerides Cholesterol LDL Cholesterol VLDL Cholesterol HDL Cholesterol Lipase 08/06/20 08/06/20 03:40 03:40 WBC 9.4 RBC 4.42 L Hgb 13.2 Hct 40.1 MCV 90.7 MCH 29.9 MCHC 32.9 RDW Std Deviation 45.5 H RDW Coeff of César 13.5 Plt Count 173 MPV 10.2 Immature Gran % (Auto) Neut % (Auto) Lymph % (Auto) Adams % (Auto) Eos % (Auto) Baso % (Auto) Absolute Neuts (auto) Absolute Lymphs (auto) Nucleated RBC % PT INR APTT D-Dimer Quant (PE/DVT) Sodium 140 Potassium 3.8 Chloride 109 H Carbon Dioxide 26.0 Anion Gap 5 BUN 14 Creatinine 0.76 Estim Creat Clear Calc 106.36 Est GFR (MDRD) Af Amer 132 Est GFR (MDRD) Non-Af 109 BUN/Creatinine Ratio 18.3 Glucose 114 H Calcium 8.2 L Magnesium Total Bilirubin 0.70 AST 176 H ALT 53 Alkaline Phosphatase 54 Troponin I Total Protein 5.7 L Albumin 3.0 L Globulin 2.7 Albumin/Globulin Ratio 1.1 Triglycerides 90 Cholesterol 172 LDL Cholesterol 95 VLDL Cholesterol 18 HDL Cholesterol 59 Lipase Cardiology Labs/Tests 08/05/20 09:30: Sodium 138, Potassium 3.3 L, Chloride 103, Carbon Dioxide 26.0, Anion Gap 9, BUN 18, Creatinine 0.86, Est GFR (MDRD) Af Amer 115, Est GFR (MDRD) Non-Af 95, BUN/Creatinine Ratio 20.9 H, Glucose 149 H, Calcium 9.1, Magnesium 2.3, Total Bilirubin 0.90, Troponin I 0.110 H 08/05/20 09:30: WBC 7.6, RBC 4.99, Hgb 15.1, Hct 44.5, MCV 89.2, MCH 30.3, MCHC 33.9, Plt Count 217, MPV 10.3, Immature Gran % (Auto) 0.300, Neut % (Auto) 62.7, Lymph % (Auto) 26.4, Adams % (Auto) 9.4, Eos % (Auto) 0.8, Baso % (Auto) 0.4, Absolute Neuts (auto) 4.8, Nucleated RBC % 0 08/05/20 09:30: PT 11.9, INR 0.9, APTT 24.3, D-Dimer Quant (PE/DVT) <= 0.27 08/05/20 15:35: WBC 9.5, RBC 4.82, Hgb 14.5, Hct 43.0, MCV 89.2, MCH 30.1, MCHC 33.7, Plt Count 196, MPV 10.3 08/05/20 15:35: Troponin I 82.400 H* 08/05/20 18:20: Troponin I 110.000 H* 08/06/20 03:40: WBC 9.4, RBC 4.42 L, Hgb 13.2, Hct 40.1, MCV 90.7, MCH 29.9, MCHC 32.9, Plt Count 173, MPV 10.2 08/06/20 03:40: Sodium 140, Potassium 3.8, Chloride 109 H, Carbon Dioxide 26.0, Anion Gap 5, BUN 14, Creatinine 0.76, Est GFR (MDRD) Af Amer 132, Est GFR (MDRD) Non-Af 109, BUN/Creatinine Ratio 18.3, Glucose 114 H, Calcium 8.2 L, Total Bilirubin 0.70, Triglycerides 90, Cholesterol 172, LDL Cholesterol 95, VLDL Cholesterol 18, HDL Cholesterol 59 Rhythm: EKG: ECHO: Stress Test: Cardiac Cath: PCI: CT Surgery: Holter monitor: EPS: PPM: CXR: Chest CT Scan: Radiography Diagnostic Testing: Radiology Impression Chest X-Ray 08/05/20 09:59 IMPRESSION: Hyperinflation. Prominent central pulmonary arteries. Electronically Signed: Rajinder Pike MD at 10:13 EDT , Service support , Physical Exam Narrative Cardiac examination revealed underlying cardiac rhythm is sinus S1-S2 is regular No murmur JVp is not elevated Neck no lymphadenopathy, supple and no JVD Chest inspection of chest normal Resp clear to auscultation bilaterally Cardio regular rate, regular rhythm, S1 normal heart sound, no murmurs, no rub, no gallops, no clicks and no JVD GI normal to inspection, nondistended, normoactive bowel sounds and soft to palpation Extremity normal to inspection, no clubbing, cyanosis or edema and no pedal edema Assessment & Plan Assessment/Plan (1) NSTEMI, initial episode of care: PLAN: 65-year-old patient presented with symptoms of chest pain Symptom has been for the last 2 days progressively get worse Came to the ER where he been evaluated by EKG and cardiac markers. Had change in the EKG with ST depression noted in V3, underwent cardiac catheterization Revealed occluded proximal D1 and had significant atherosclerosis involving the LAD which is calcified Patient and there were not successful PCI of the culprit lesion with placement of drug-eluting stent/resolute As well he had a stent into the mid LAD and the distal LAD. Rest of his evaluation including the left main the left circumflex and RCA showed nonobstructive atherosclerosis involving the proximal and the mid RCA. Today patient has been stable clinically symptoms of chest pain is resolved. Recommendation and plan; 1. To continue on dual antiplatelet therapy with Brilinta/aspirin for 1 year and low-dose aspirin indefinitely 2. Statin high-dose atorvastatin 40 mg once a day 3. To continue on low-dose beta-angela as tolerated carvedilol 3.125 mg twice daily Adding AZALEA inhibitor post [place] with the lisinopril 10 mg as tolerated by the blood pressure 4. Patient will be started on a cardiac rehab program phase 1 5. With recommend to follow-up with the cardiology team for continuation of cardiac care plan and recommendation. Today I discussed in detail the cardiac care plan and recommendation with the medical team and the nursing staff. If he stable clinically he can be discharged home tomorrow Cardiology Labs/Tests Cardiology Labs/Tests: 08/05/20 09:30: Sodium 138, Potassium 3.3 L, Chloride 103, Carbon Dioxide 26.0, Anion Gap 9, BUN 18, Creatinine 0.86, Est GFR (MDRD) Af Amer 115, Est GFR (MDRD) Non-Af 95, BUN/Creatinine Ratio 20.9 H, Glucose 149 H, Calcium 9.1, Magnesium 2.3, Total Bilirubin 0.90, Troponin I 0.110 H 08/05/20 09:30: WBC 7.6, RBC 4.99, Hgb 15.1, Hct 44.5, MCV 89.2, MCH 30.3, MCHC 33.9, Plt Count 217, MPV 10.3, Immature Gran % (Auto) 0.300, Neut % (Auto) 62.7, Lymph % (Auto) 26.4, Adams % (Auto) 9.4, Eos % (Auto) 0.8, Baso % (Auto) 0.4, Absolute Neuts (auto) 4.8, Nucleated RBC % 0 08/05/20 09:30: PT 11.9, INR 0.9, APTT 24.3, D-Dimer Quant (PE/DVT) <= 0.27 08/05/20 15:35: WBC 9.5, RBC 4.82, Hgb 14.5, Hct 43.0, MCV 89.2, MCH 30.1, MCHC 33.7, Plt Count 196, MPV 10.3 08/05/20 15:35: Troponin I 82.400 H* 08/05/20 18:20: Troponin I 110.000 H* 08/06/20 03:40: WBC 9.4, RBC 4.42 L, Hgb 13.2, Hct 40.1, MCV 90.7, MCH 29.9, MCHC 32.9, Plt Count 173, MPV 10.2 08/06/20 03:40: Sodium 140, Potassium 3.8, Chloride 109 H, Carbon Dioxide 26.0, Anion Gap 5, BUN 14, Creatinine 0.76, Est GFR (MDRD) Af Amer 132, Est GFR (MDRD) Non-Af 109, BUN/Creatinine Ratio 18.3, Glucose 114 H, Calcium 8.2 L, Total Bilirubin 0.70, Triglycerides 90, Cholesterol 172, LDL Cholesterol 95, VLDL Cholesterol 18, HDL Cholesterol 59 Cardiology Impression Chest X-Ray 08/05/20 09:59 IMPRESSION: Hyperinflation. Prominent central pulmonary arteries. Electronically Signed: Rajinder Pike MD at 10:13 EDT , Service support , Rhythm: Underlying cardiac rhythm today normal sinus EKG: EKG showed ST depression in V3. No evidence of ST elevation noted. Current Medications Acetaminophen (Acetaminophen 325 Mg Tablet) 650 mg PO Q6H PRN PRN PRN Reason: Pain Score 1-10/Temp > 100.7 F Aspirin (Aspirin E.C. 81 Mg Tablet) 81 mg PO DAILY@0800 [facility] Atorvastatin Calcium (Atorvastatin Calcium 40 Mg Tablet) 40 mg PO QHS [facility] Last Admin: 08/05/20 21:19 Dose: 40 mg Documented by: Atropine Sulfate (Atropine Sulfate 1 Mg/10 Ml Syringe) 0.5 mg IV UD PRN PRN Reason: HR <50 bpm Carvedilol (Carvedilol 3.125 Mg Tablet) 3.125 mg PO BID [facility] Last Admin: 08/05/20 21:18 Dose: 3.125 mg Documented by: Heparin Sodium (Beef Lung) (Heparin Lock 500 Unit/5 Ml In 10 Ml Syringe) 500 unit IV UD PRN PRN Reason: HEPARIN FLUSH Eptifibatide (Integrilin) 75 mg in 100 mls @ 15.728 mls/hr CONT INF .Q6H22M [facility] Last Admin: 08/06/20 09:21 Dose: Not Given Documented by: Lisinopril (Lisinopril 5 Mg Tablet) 5 mg PO DAILY [facility] Morphine Sulfate (Morphine 4 Mg/Ml Syringe) 4 mg IV PRN PRN PRN Reason: Pain Last Admin: 08/05/20 10:08 Dose: 4 mg Documented by: Nitroglycerin (Nitroglycerin Sl (Ed/Img/Cath) 0.4 Mg Tablet) 0.4 mg SL Q5M PRN PRN Reason: Chest pain Last Admin: 08/05/20 10:06 Dose: 0.4 mg Documented by: Ondansetron HCl (Ondansetron 4 Mg/2 Ml Vial) 4 mg IV Q8H PRN PRN PRN Reason: NAUSEA/VOMITING Oxycodone HCl (Oxycodone 5 Mg Tablet) 5 mg PO Q4H PRN PRN PRN Reason: Pain Score 4-5 Oxycodone HCl (Oxycodone 5 Mg Tablet) 10 mg PO Q4H PRN PRN PRN Reason: Pain Score 6-10 Last Admin: 08/06/20 05:49 Dose: 10 mg Documented by: Sodium Chloride (0.9% Saline Lock 10 Ml Syringe) 10 - 40 ml IV UD PRN PRN Reason: SALINE FLUSH Last Admin: 08/05/20 21:17 Dose: 20 ml Documented by: Sodium Chloride (0.9% Normal Saline 500 Ml Iv.Soln.) 500 ml IV BOLUS PRN PRN Reason: VASO-VAGAL PROTOCOL Ticagrelor (Ticagrelor 90 Mg Tablet) 90 mg PO BID VIRGIL
--- NOTE | 2020-08-06 10:00 | EKG12_ITS ---
Test Reason : POST PCI Blood Pressure : / mmHG Vent. Rate : 082 BPM Atrial Rate : 081 BPM P-R Int : 000 ms QRS Dur : 136 ms QT Int : 440 ms P-R-T Axes : 000 157 -01 degrees QTc Int : 514 ms Suspect arm lead reversal, interpretation assumes no reversal Junctional rhythm Non-specific intra-ventricular conduction block Right ventricular hypertrophy Lateral infarct , age undetermined Abnormal ECG When compared with ECG of 05-AUG-2020 10:40, MANUAL COMPARISON REQUIRED, DATA IS UNCONFIRMED Confirmed by DEANNE DERAS, IRWNI ([id number]), editor magazine ALEX GONZALEZ ([id number]) on 08/11/2020 10:19:51 AM Referred By: Kodak Gonzalez Confirmed By:IRWIN ALICEA MD
--- NOTE | 2020-08-06 10:10 | CASEMGMT ---
ÁNGEL NIETO NOTE: Pt screened with [facility] Palliative Care Screening Tool for strata 3, pt did not meet criteria. Daniele TURCIOSN RN CM
[2020-08-06] MEDS: Carvedilol 3.125 MG TABLET PO ×2 (10:25→21:46)
[2020-08-06] MEDS: Aspirin E.C. 81 MG Tablet PO (10:25)
[2020-08-06] MEDS: Lisinopril 5 MG Tablet PO (10:25)
[2020-08-06] MEDS: TICAGRELOR 90 MG TABLET PO ×2 (10:25→21:46)
--- NOTE | 2020-08-06 11:01 | CASEMGMT ---
RN GERSON REFRIGERATING TECHNICIAN CM to room to meet with patient for initial transition planning/care coordination assessment. ÁNGEL NIETO introduced self and role at [facility]. Pt voices understanding and consents to assessment at this time. Pt resting in bed in no distress at this time. Pt is A/O at this time and answers all questions appropriately. Care providers, pharmacy, and demographics verified/updated at this time. PCP: Dr Anna Specialists: Dr Crook-pulmonology for [facility] Insurance: [facility] Prescription Benefit: Yes. Pt to be discharged home on Brilinta. Brilinta 30-day savings card given to pt and instructed on use. Pt made aware, if refills are not affordable, to inform cardiology so other options can be discussed. He voices understanding. Living Will/HPOA: [facility] does not have LW or HCPOA . Interested in more information but [facility] talk with SW at this time to complete paperwork. Provided information on advanced directives and given Social Service rac card with number to call if chooses in the future to utilize [facility] social work for advanced directive completion. Educated patient that, if patient so chooses, can come back to [facility] and meet with a SW as an outpatient to complete health care advanced directives. Patient expresses understanding. LNOK: , Becka. 3 children Living Arrangements: Lives w/, Becka, in 2-story home w/3 steps to enter. Denies difficulty w/stairs. Independent. Works full-time. 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 Transportation: Pt states drives self and states no transportation concerns at this time. also drives DME: States has the following DME: CPAP Pt states no need for further DME at this time. HHC/SNF: No history of either. No needs identified. Pt wishes to return home and states has no concerns with going home at time of discharge. Pt states he drinks 2 beers a day and smokes over a PPD cigarettes. CM to follow for any further discharge planning/needs. Pt voices no further concerns/needs at this time. Advised pt to ask for CM if any further questions/concerns/needs arise. Voices understanding. PLAN: Home Daniele TIMMONS RN, CM
--- NOTE | 2020-08-06 11:55 | PN.HOSP_ITS ---
Subjective Subjective Feels well. No chest pain. Objective Data Objective Data Vital Signs: Vital Signs Temp Pulse Resp BP Pulse Ox 36.9 C 59 L 16 118/71 96 08/06/20 07:00 08/06/20 11:08 08/06/20 11:00 08/06/20 11:00 08/06/20 11:00 Oxygen Delivery Method Room Air Weight: 99 kg Body Mass Index (BMI) 29.5 Intake & Output: Intake and Output for Last 24 Hours 08/04/20 08/05/20 08/06/20 23:59 23:59 23:59 Intake Total 1712.48 / 1712.48 Output Total 1050 / 1050 925 / 925 Balance -1050 / -731.24 787.48 / 787.48 Lab / Micro Data Result Diagrams: 08/06/20 03:40 08/06/20 03:40 Labs: Laboratory Results - last 24 hr 08/05/20 08/05/20 08/05/20 15:35 15:35 18:20 WBC 9.5 RBC 4.82 Hgb 14.5 Hct 43.0 MCV 89.2 MCH 30.1 MCHC 33.7 RDW Std Deviation 42.9 RDW Coeff of César 13.1 Plt Count 196 MPV 10.3 Sodium Potassium Chloride Carbon Dioxide Anion Gap BUN Creatinine Estim Creat Clear Calc Est GFR (MDRD) Af Amer Est GFR (MDRD) Non-Af BUN/Creatinine Ratio Glucose Calcium Total Bilirubin AST ALT Alkaline Phosphatase Troponin I 82.400 H* 110.000 H* Total Protein Albumin Globulin Albumin/Globulin Ratio Triglycerides Cholesterol LDL Cholesterol VLDL Cholesterol HDL Cholesterol 08/06/20 08/06/20 03:40 03:40 WBC 9.4 RBC 4.42 L Hgb 13.2 Hct 40.1 MCV 90.7 MCH 29.9 MCHC 32.9 RDW Std Deviation 45.5 H RDW Coeff of [place]ar 13.5 Plt Count 173 MPV 10.2 Sodium 140 Potassium 3.8 Chloride 109 H Carbon Dioxide 26.0 Anion Gap 5 BUN 14 Creatinine 0.76 Estim Creat Clear Calc 106.36 Est GFR (MDRD) Af Amer 132 Est GFR (MDRD) Non-Af 109 BUN/Creatinine Ratio 18.3 Glucose 114 H Calcium 8.2 L Total Bilirubin 0.70 AST 176 H ALT 53 Alkaline Phosphatase 54 Troponin I Total Protein 5.7 L Albumin 3.0 L Globulin 2.7 Albumin/Globulin Ratio 1.1 Triglycerides 90 Cholesterol 172 LDL Cholesterol 95 VLDL Cholesterol 18 HDL Cholesterol 59 Physical Exam Const alert Exam Limitations: no limitations Eyes PERRL Resp normal respiratory effort and clear to auscultation bilaterally Cardio regular rate, regular rhythm, S1 normal heart sound and S2 normal heart sound GI normal to inspection, nondistended, normoactive bowel sounds, non-tender and non-distended Assessment & Plan Assessment/Plan (1) NSTEMI, initial episode of care: PLAN: 1. Non-ST patient myocardial infarction * Patient underwent two-vessel [employer]PL[employer] * Currently on bedrest with a femoral sheath and patient currently on Integrilin drip. * Continue aspirin, atorvastatin, carvedilol, lisinopril and ticagrelor * Echo ordered * DW Dr. Gonzalez, ok to transfer to PCU after sheeth is removed. 2. Obstructive sleep apnea * Utilize CPAP. I am okay with the patient having CPAP brought in by his 3. Tobacco abuse * Patient smokes over a pack per day * He states that he is definitely going to quit * Hold off on nicotine patch replacement given his current status 4. VTE prophylaxis: Moderate to high risk. SCDs. Avoid chemical prophylaxis while he is currently on Integrilin. 5. Advanced care planning: Discussed with patient. Patient wishes to be full CODE STATUS at this time. 6. Health maintenance: Patient has not had the COVID-19 vaccination. I strongly encouraged that he get that upon discharge. Explained that there is no current contraindication with his procedure and or underlying cardiac disease for the vaccination. Explained to him that he could fare very poorly given his current cardiac status if you were to contract COVID-19. 7. Disposition: to home 08/07. Visit Charges Inpatient E&M: 87916 Subs Hosp L2
--- NOTE | 2020-08-06 17:32 | NURSING ---
1615- pt bedrest up. pt sat up and ambulated with no issues. Groin and wrist sites dry and intact. No complaints of pain.
[2020-08-06] MEDS: Atorvastatin Calcium 40 MG Tablet PO (21:46)
[2020-08-07] VITALS (7 sets, daily range): BP systolic 102–111; BP diastolic 63–65; PULSE 65–72; RESP 16–19; TEMP 36.6–36.7; O2SAT 94–98
[2020-08-07 03:33] LABS: Absolute Neutrophil Count 6.5 X10^3/uL (2.0-7.7); Basophil# 0.02 X10^3/uL; Basophil% 0.2 % (0-1); Eosinophil# 0.08 X10^3/uL; Eosinophils% 0.9 % (0-5); Hematocrit 42.1 % (40-54); Hemoglobin 13.8 g/dL (13.0-16.5); Lymphocyte % 12.7 % (19-41); Mean Corp Hgb Conc 32.8 g/dL (32-36); Mean Corpuscular Hgb 30.2 pg (27.0-32.0); Mean Corpuscular Volume 92.1 fL (80-94); Mean Platelet Vol. 10.4 fl (6.2-12.0); Monocyte% 11.5 % (0-10); NRBC Flagged by Analyzer 0 % (0-5); Neutrophil # 6.47 X10^3/uL (2.7-7.7); Neutrophil % 74.5 % (47-70); Platelet Count 174 K/mm3 (150-450); RBC Distribution Width CV 13.6 % (11.6-14.6); Red Blood Count 4.57 M/mm3 (4.6-6.2); White Blood Count 8.7 K/mm3 (4.4-11.0)
[2020-08-07 04:00] LABS: Anion Gap 5 (5-15); BUN 14 mg/dL (7-18); BUN/Creat Ratio 18.1 RATIO (10-20); Calcium,Total 8.6 mg/dL (8.5-10.1); Chloride 105 mmol/L (98-107); Creatinine, Serum 0.77 mg/dL (0.70-1.30); EST Glomerular Filtration Rate 107 mL/min (>60); Est Glom Filt Rate - Afr Amer 130 mL/min (>60); Estimated Creatinine Clearance 104.98 ml/min; Glucose 109 mg/dL (74-106); Potassium 3.8 mmol/L (3.5-5.1); Sodium Level 138 mmol/L (136-145)
[2020-08-07] MEDS: TICAGRELOR 90 MG TABLET PO (08:14)
[2020-08-07] MEDS: Lisinopril 5 MG Tablet PO (08:14)
[2020-08-07] MEDS: Carvedilol 3.125 MG TABLET PO (08:15)
[2020-08-07] MEDS: Aspirin E.C. 81 MG Tablet PO (08:17)
--- NOTE | 2020-08-07 10:00 | EKG12_ITS ---
Test Reason : REPEAT Blood Pressure : / mmHG Vent. Rate : 054 BPM Atrial Rate : 054 BPM P-R Int : 144 ms QRS Dur : 112 ms QT Int : 456 ms P-R-T Axes : 048 071 048 degrees QTc Int : 432 ms Sinus bradycardia with marked sinus arrhythmia Incomplete right bundle branch block Nonspecific ST abnormality Abnormal ECG When compared with ECG of 05-AUG-2020 10:13, MANUAL COMPARISON REQUIRED, DATA IS UNCONFIRMED Confirmed by DEANNE DERAS, IRWIN ([id number]), continuity editor ALEX GONZALEZ ([id number]) on 08/11/2020 10:20:02 AM Referred By: Kodak Gonzalez Confirmed By:IRWIN ALICEA MD
--- NOTE | 2020-08-07 10:58 | PCM.DC ---
Discharge Instructions Diet Discharge Diet: Low fat / Low cholesterol Activity Lifting Restrictions: 20 pounds Additional Activity Instructions:: Return to work when ok by cardiology. Dressing / Incision Call your doctor if you observe: Shortness of breath and Chest pain Follow Up Care Test Results: Test results from this visit will be discussed in further detail at your follow-up appointment, if applicable. Discharge Plan Admission Admit Date/Time: 08/05/20 14:37 Primary Reason for Your Visit: Myocardial infarction Attending Provider: Kodak Gonzalez Primary Care Provider: Isrrael Anna Consulting Providers: Gregorio Wade Instructions Additional Instructions / Restrictions: Get the COVID-19 vaccination at your earliest convenience. Discharge Orders/Prescriptions Referrals / Follow Up: Isrrael Anna MD [Primary Care Provider] - Disposition Disposition (needs filled in before D/C Order can be placed): Home, self care
--- NOTE | 2020-08-07 11:08 | PCM.DC.SUM ---
Providers Date of Admission: 08/05/20 Date of Discharge: 08/07/20 Primary Care Physician: Dr. Isrrael Anna MD Consultations 08/05/20 14:01 Consult: Hospitalist Routine Consulting Provider: Gregorio Wade Reason for Consult: Medical management EMERGENT Consult: No MD Notified: Yes Date Notified:: 08/05/20 Time Notified: 14:20 Method of Notification: Verbal Reason For Visit: chest pain Diagnosis Discharge Diagnosis (1) NSTEMI, initial episode of care: Status: Acute Code(s): I21.4 - Non-ST elevation (NSTEMI) myocardial infarction Medications at Discharge Home Medications aspirin 81 mg PO DAILY@0800 #0 tab 08/07/20 atorvastatin 40 mg PO QHS #30 tab 08/07/20 carvedilol 3.125 mg PO BID #60 tab 08/07/20 lisinopril 5 mg PO DAILY #30 tab 08/07/20 nitroglycerin 0.4 mg SUBLINGUAL Q5M PRN #20 tab 08/07/20 ticagrelor [Brilinta] 90 mg PO BID #60 tab 08/07/20 Hospital Course Operations None Procedures 2-D Echocardiogram and Cardiac catheterization Summary of Care Provided Minutes Spent on Discharge: 32 Hospital Course: 65-year-old presents with chest pain. Patient been having a history of exertional chest pain but this episode was much more severe with diaphoresis and shortness of breath. Patient present emergency room aspirin was slightly elevated taken to cardiac cath. Patient underwent PCI of occluded proximal diagonal with a drug-eluting stent as well as the LAD. Patient tolerated the procedure well. Afterwards, patient had his sheath left in his groin and I was on Integrilin overnight. Integrilin was discontinued on the . Patient was observed and has remained stable. Patient will be discharged with aspirin, lisinopril, metoprolol and aspirin and atorvastatin. Patient was an active smoker prior to this he states that he is going to quit. I did strongly advised patient to get the Covid vaccination as well stating that if he were to get COVID-19, given his underlying cardiac disease, he could potentially feel very ill. Physical Exam Const alert Eyes PERRL Resp normal respiratory effort and clear to auscultation bilaterally Cardio regular rate, regular rhythm, S1 normal heart sound and S2 normal heart sound GI normal to inspection, nondistended, normoactive bowel sounds, non-tender and non-distended Psych affect normal ABG / Lab / Microbiology Data Result Diagrams: 08/07/20 03:25 08/07/20 03:25 Laboratory: Laboratory Results - last 24 hr 08/07/20 08/07/20 03:25 03:25 WBC 8.7 RBC 4.57 L Hgb 13.8 Hct 42.1 MCV 92.1 MCH 30.2 MCHC 32.8 RDW Std Deviation 46.0 H RDW Coeff of César 13.6 Plt Count 174 MPV 10.4 Immature Gran % (Auto) 0.200 Neut % (Auto) 74.5 H Lymph % (Auto) 12.7 L [place] % (Auto) 11.5 H Eos % (Auto) 0.9 Baso % (Auto) 0.2 Absolute Neuts (auto) 6.5 Absolute Lymphs (auto) 1.10 Nucleated RBC % 0 Sodium 138 Potassium 3.8 Chloride 105 Carbon Dioxide 28.0 Anion Gap 5 BUN 14 Creatinine 0.77 Estim Creat Clear Calc 104.98 Est GFR (MDRD) Af Amer 130 Est GFR (MDRD) Non-Af 107 BUN/Creatinine Ratio 18.1 Glucose 109 H Calcium 8.6 Radiography Diagnostic Testing: Radiology Impression Echocardiogram 08/05/20 14:01 Interpretation Summary The estimated ejection fraction is EF 50-55% %. Normal LV systolic function Ordering Physician: Kodak Gonzalez Referring Physician: Lawrence Anna Performed By: Pushpa Gonzalez RDCS, RVT D/C Instructions Discharge Diet: Low fat / Low cholesterol Additional Activity Instructions: Return to work when ok by cardiology. Call your doctor if you observe: Shortness of breath and Chest pain Meaningful Use Info Meaningful Use Diagnoses (Choose all that apply): AMI AMI/Post PCI/Angioplasty Aspirin given w/in 24hrs of arrival?: Yes ASA at discharge?: Yes Antiplatelet Therapy at Discharge:: Yes Statins at discharge?: Yes Harrison/ARB at discharge?: Yes Beta Yola at discharge?: Yes Done w/ Acute OH measure.: Yes Documented LVEF (%): 50 Discharge Plan Admission Admit Date/Time: 08/05/20 14:37 Primary Reason for Your Visit: Myocardial infarction Attending Provider: Kodak Gonzalez Primary Care Provider: Isrrael Anna Consulting Providers: Gregorio Wade Instructions Additional Instructions / Restrictions: Get the COVID-19 vaccination at your earliest convenience. Discharge Orders/Prescriptions Prescriptions: New aspirin 81 mg Tablet,Delayed Release (Dr/Ec) 81 mg PO DAILY@0800 Qty: 0 RF: 0 atorvastatin 40 mg tablet 40 mg PO QHS Qty: 30 RF: 0 carvedilol 3.125 mg Tablet 3.125 mg PO BID Qty: 60 RF: 0 lisinopril 5 mg Tablet 5 mg PO DAILY Qty: 30 RF: 0 nitroglycerin 0.4 mg Tablet, Sublingual 0.4 mg sublingual Q5M PRN (Reason: Chest pain) Qty: 20 RF: 0 Brilinta 90 mg Tablet 90 mg PO BID Qty: 60 RF: 0 Referrals / Follow Up: Caden Ford MD [STAFF PHYSICIAN] - Within 2 Weeks Isrrael Anna MD [Primary Care Provider] - Within 1 Week Disposition Disposition (needs filled in before D/C Order can be placed): Home, self care Visit Charges Inpatient E&M: 39414 Disch Hosp
== END 2020-08-07 13:50 | disposition home or self-care (01) | DRG 247 ==
LOC: ED 10:16 → ICU 17:23
PROVIDERS: Admitting Provider Internal Medicine Interventional Cardiology; Emergency Provider Emergency Medicine; PCP Family Medicine; Referring Provider Internal Medicine Interventional Cardiology; Visit Provider Internal Medicine Interventional Cardiology
DX: I21.4 Non-ST elevation (NSTEMI) myocardial infarction (principal); G25.81 Restless legs syndrome; G47.33 Obstructive sleep apnea (adult) (pediatric); N40.0 Benign prostatic hyperplasia without lower urinary tract symptoms; F17.200 Nicotine dependence, unspecified, uncomplicated
CPT/HCPCS: 71045; 80048; 80053; 80061; 83690; 83735; 84484; 85025; 85027; 85379; 85610; 85730; 92928; 92929; 93005; 93306; 93454; 97802; 99285; J7030; J7040; Q9957; Q9967; A4216; C1725; C1769; C1874; C1887; C1894; C8929; C9600; C9601; J1327; J2405

== ENCOUNTER → 2020-08-27 06:27 | Outpatient (CLI) | payer OTHER, SELFPAY ==
[2020-08-24 12:23] VITALS: BMI 28.7
--- NOTE | 2020-08-27 06:31 | PCM.CR.ITP ---
Diagnosis - General Information Secondary Diagnosis: Patient is a 65 yr old male of Dr. Ford who presents to CR today following recnet NSTEMI and coronary stenting completed on 08/05/2020. Personal Learning Style:: Audio/Visual, Written Barriers to Learning: Vision Impairment Stage of change r/t lifestyle modifications:: Action Gave educational material for:: Treating Heart Disease, Emotions & Heart Disease, Stress Management & Relaxation, Sleep Disorders & Heart Disease, How The Heart Works, What it means to have Heart Disease, How Coronary Artery Disease is Diagnosed, Heart Procedures, What Heart Medications Do, Risk Factors & Modifications, Living an Active Life, Nutrition - Education/Goals Individual Counseling: Initial Assessment: Nicotine/Smoking - Refer to Smoking Cessation, Abnormal Cholesterol Levels, High Blood Pressure, Overweight/Obesity Cardiac Rehabilitation Goals: 1. Maintain the individual as the primary focus of care. 2. To improve the patient's quality of life. 3. Identification of cardiac risk factors and provide cardiac risk factor management. 4. Enhance the psychosocial status of the patient. 5. Reconditioning enough to allow the patient to resume customary activities. 6. Control symptoms of cardiac disease Personal Goals: Initial Assessment: Quit smoking (participate in smoking cessation, Improve management of stress and emotions, Improve energy level, Get back to work, or to resume activities faster, Improve knowledge of cardiac disease, Improve muscle strength and endurance, Improve diet and eating habits (eat healthier), Control risk factors (learn risk factor modification) Scale for measuring improvement of personal goals: Enter appropriate number in Comments. 2 = Unchanged. 3 = Slightly Better. 4 = Moderate Improvement. 5 = Met my Goal - Diagnosis & Disease Process Outcomes/Goals: Pt IDs own risk factors & lifestyle modifications by Session 10, Verbalizes symptoms of angina & response by session 3., Pt independently manages Plan/Interventions: Assist Pt to ID & engage in lifestyle modification to reduce CVD risk, Instruct on individual risk factors, Review symptoms of angina & emergency actions, Review secondary diagnosis & identify educational needs. - Safety Referral to Physical Therapy: No Referral to [facility] Case Management: No Fall Risk Assessed:: Yes Assistive Devices:: None Exercise - Initial Assessment - Visit Date of Eval: 08/27/20 Session #:: 0 - Pre-cardiac rehab evaluation Mets: Pre-: >7 METS for 30 minutes by discharge - Physician Prescribed Exercise Modalities: Treadmill, Rower, Airdyne Frequency: 3x/week for 12 weeks [36 sessions] Intensity: 60-80% of age predicted maximum heart rate reserve Current METSs:: 3.5 Target Heart Rate:: 100-132 Resting Blood Pressure: 109/67 EKG Type: Sinus Farshad with marked sinus arrythmia - Outcomes & Goals Goals:: Verbalizes understanding of THR, RPE & goal METS by session 6, Documents in home exercise log/reports 30 min aerobic 5 day/wk by DC, Demonstrates accurate pulse taking by DC - Intervention & Plan Exercise Program Goals: Instruct on personal THR & RPE, Instruct on MET level & personal MET goal, Show patient to take own pulse /validate performance until accurate, Instruct on home exercise - Physical Activity Home Exercise Physical Activity - Home Exercise: Safe Exercise, Warm-up, Self-monitoring, Cool-Down, Home Exercise > 30 min Daily, Sitting Time <3 hours/daily - Outcomes & Goals Outcomes/Goals: Demonstrates correct Warm-up/exercise Cool-Down (S3) if = 2.5 METs, Verbalizes symptoms of exercise intolerance by Session 3 (S3), Demonstrate safe equipment use (S3) & follows exercise prescrition (6) - Intervention & Plan Plan/Intervention: Instruct warm-up & cool-down if exercising at > 2 METs, Instruct on symptoms of exercise intolerance & actions to take, Instruct & monitor on saf, Assess intial functional capacity & safety risk Nutrition - Initial Assessment - Program Goals Nutrition Program Goals: LDL <100 optimal. 100 - 129 Near optimal. 130 - 159 Borderline High. 160 - 189 High. Total Cholesterol <200 desirable. 200 - 239 Borderline High. >/= 240 High. HDL < 40 Low >/=60 High. Triglycerides <150 desirable. <199 optimal. VlDL 5 - 40. HgbA1C <7%. BMI <25 Patient has diagnosis of Hyperlipidemia (ICD E78)?: Yes - Visit Date of Assessment:: 08/27/20 Session #:: 0 - Pre-cardiac rehab evaluation - Cholesterol/Lipids Triglycerides (mg/dL): 90 - 08/06/2020 Total Cholesterol (mg/dL): 172 LDL Cholesterol (mg/dL): 95 HDL Cholesterol (mg/dL): 59 Determine presence & major risk factors that modify LDL goal: Cigarette smoking, Hypertension or hypertensive medication, Family history of premature CHD in Male < 55 years: female <65 yearsFa, Age men > 45 years; women >/= 55 years Outcomes/Goals: Pt IDs own risk factors & lifestyle modifications by Session 10, Verbalizes symptoms of angina & response by session 3., Pt independently manages Intervention/Plan: Instruct on personal lipid levels & lipid goals/NCEP guidelines, Instruct on cholesterol Referral to dietitian:: Yes - Medical Nutrition Therapy - Diabetes (Other Core Measures) Diabetes Type: Not Applicable - Weight Mgt (Other Care) Not Applicable: Yes Height: 6 ft Weight:: 212 lb BMI: 28.7 Diagnosis Overweight/Obesity BMI> 30% ICD-10 E66: No Diagnosis High BMI/Morbid Obesity BMI> 35% ICD-10 Z68: No Outcomes/Goals: Pt sets, maintains & shows weight loss goal & trend during rehab Intervention/Plan: Instruct on ideal BMI & set weight loss goal w/patient, Assist pt to ID & incorporate diet changes for weight loss by S9, Encourage goal of using 250-300dcal per session for weight loss - Healthy Eating Habits Will attend diet classes:: Yes Outcomes/Goals:: Consume diet rich in vegs,fruits,whole grain/high fiber,fish,lean meat, Limit sat/trans fats,cholesterol & added salts & sugars Intervention/Plan:: Assess current eating habits Nutrition - 30-Day Assessment Nutrition - 60-Day Assessment Nutrition - 90-Day Assessment Nutrition - Final Assessment Medical - Initial Assessment - Visit Date of Eval: 08/27/20 Session #:: 0 - Pre-cardiac rehab evaluation - Medication Compliance Preventative Medication(s):: Aspirin, Ticagrelor/P2Y12 inhibitor, Statin/lipid H/O mental health issues: depression, anxiety, or addiction?: No Doesn?t believe in the benefits of treatment?: No Believes medications are unnecessary or harmful?: No Has a concern about medication side effects?: No Expresses concern over the cost of medications?: No Outcomes/Goals: Verbalizes medications,desired effect & common side effects @ DC, Pt self-reports following medication regimen, Keeps card in wallet w/medications listed by DC Interventions/plans: Instruct on medication effects & side effects, Review medication list w/patient every two weeks, Instruct importance of taking meds as ordered & assist problem solving - Tobacco Use Tobacco Use: Cigarettes Do you use smokeless tobacco?: No Outcomes/Goals: Smoking cessation achieved or maintained by discharge, Identify aids/strategies for achieving smoking cessation by session 6 Interventions/plan: Instruct on effects of smoking & provide smoking cessation resource, Assist pt to set quit date & provide encouragement, Assist pt to develop strategies to achieve/maintain quit date, Assist pt w/nicotine replacement & medication for cessation success - Hypertension Hypertension Diagnosis:: Hypertension ICD-10 I10 Resting Blood Pressure:: 109/67 [employer] Hypertension Guidelines: [employer] Hypertension Guidelines. Normal BP Less than 120/80. Elevated BP 120/80. Hypertension Stage 1: BP 130-139/80-89. Hypertesnion Stage 2: BP 140 or higher/90 or higher. Hypertension Crisis: BP higher than 180/120 Outcomes/Goals: Able to verbalize/achieve optimal blood pressure <130/80, Incorporates diet changes & exercise for blood pressure control by DC Interventions/plan: Instruct on optimal blood pressure, hypertension & medications, Instruct on effects of sodium, alcohol, stress, exercise &hypertension - Tobacco Cessation Referral Smoking Cessation Referral:: Yes Individual Education/Counseling:: No Education Schedule Given:: Yes Medical- 30-Day Assessment Medical- 60-Day Assessment Medical- 90-Day Assessment Medical - Final Assessment Psychosocial - Initial Assess - VIsit Date of Eval: 08/27/20 Session #:: 0 - Pre-cardiac rehab evaluation Not Applicable: Yes History of previous Mental disease:: No - Psychosocial Test Tool Used:: RenaeYoulicit QOL Cardiac, PHQ-9 Questionnaire phq-9 Severity: Severity. 1-4 Minimal Depression. 5-9 Mild Depression. 10-14 Moderate Depression. 15-19 Moderately Sever Depression. 20-27 Severe Depression. Rule: - Referral to Behavioral Health PS - Interventions: Yes Attend Stress Management Classes, No Referral to Behavioral Health if PHQ-9 score >9:, No Referral to [facility], No Referral to Physician if PHQ-9 if score is 5-9: - Outcomes/Goals: See list Psychosocial Outcomes/Goals:: ID's personal stressors & 2 strategies to manage stress by discharge - Intervention/Plan: See List Interventions/Plan:: Assess stressors,coping strategies & signs of derpression on admission, Instruct/assist pt to develop coping & personal stress Mgt strategies, Instruct patient to recognize signs & symptoms of depression, Instruct patient to recog Psychosocial - 30-Day Assess Psychosocial - 60-Day Assess Psychosocial - 90-Day Assess Psychosocial - Final Assessmen Patient Health Questionnaire Initial Assessment 1. Little interest or pleasure in doing things: Nearly every day 2. Feeling down, depressed, or hopeless: Several days 3. Trouble falling or staying asleep, or sleeping too much: More than half the days 4. Feeling tired or having little energy: Nearly every day 5. Poor appetite or overeating: Several days 6. Feeling bad about yourself -- or that you are a failure or have let yourself or your family down: Not at all 7. Trouble concentrating on things, such as reading the newspaper or watching television: Not at all 8. Moving or speaking so slowly that other people could have noticed. Or the opposite - being so fidgety or restless that you have been moving around a lot more than usual: Not at all 9. Thoughts that you would be better off , or of hurting yourself in some way: Not at all How difficult have these problems made it for you to do your work, take care of things at home, or get along with other people?: Somewhat difficult Total Score: 10 CHRIS-Q SV Test - Statements CAD is a disease of the arteries in the heart: False Examples of risk factors for heart disease: True Angina is chest pain or discomfort: True The benefits of resistance training include: True Eating more meat and dairy products: False Anti-platelet medications such as aspirin are important: True The only effective way to manage stress: False An exercise warm-up slowly increases heart rate: True Prepared, processed foods usually have high sodium: True Depression is common after a heart attack: True The statin medications lower cholesterol: True To control blood pressure, lower the amount of sodium: True If someone gets chest discomfort during walking: False Transfats are partially hydrogenated vegetable oils: True Sleep apnea that is not treated increases the risk: False To control cholesterol, one should become a vegetarian: False Someone knows if he/she is exercising at the right level: True Diabetes cannot be prevented with exercise & health eating: False Stress is a large risk for heart attack: True A diet that can help lower blood pressure is rich in: True - Total Score Total Correct Responses: 20 Self-Efficacy Initial Assessment We would like to know how confident you are in doing certain activities. Please select your confidence level for:: Select your confidence level for the following using the scale 1-10 where 1 is not at all confident and 10 is totally confident. Your score is the average of all 6 responses. Fatigue: How confident are you that you can keep the fatigue caused by your disease from interfering with the things you want to do? Select Number: 3 Physical Discomfort or Pain: How confident are you that you can keep the physical discomfort or pain of your disease from interfering with the things you want to do? Select Number: 3 Emotional Distress: How confident are you that you can keep the emotional distress caused by your disease from interfering with the things you want to do? Select Number: 3 Other Symptoms or Health Problems: How confident are you that you can keep other symptoms or health problems from interfering with the things you want to do? Select Number: 7 Different Tasks and Activities: How confident are you that you can do the different tasks and activities needed to manage your health condition so as to reduce your need to see a doctor? Select Number: 6 Medication: How confident are you that you can do things other than just taking medication to reduce how much your illness affects your everyday life? Select Number: 5 Total Score:: 4 Nutrition Survey - Nutrition Survey Initial Have you lost >10 lbs over the past 2 months without trying?: Yes Are you following a special diet at home for diabetes, low fat, or low salt?: No Are you interested in meeting with a dietitian for help understanding your diet?: Yes Do you eat less than 3 meals a day?: Yes Do you eat fatty meats (watson, sausage, ribs, etc), fried foods, desserts, large amounts of salad dressings, margarine, butter, or cheese most days?: Yes Do you have food allergies? [Enter types in comment field]: Yes Do you eat in restaurants more than 3 times a week?: No Do you season food with salt, seasoning salt, or garlic salt?: Yes Do you used canned, boxed, frozen meals, or soups, seasoning packets?: Yes - Patient at risk and could benefit from Nutritional Counseling (Medical Nutrition Therapy) Total Score:: 7
--- NOTE | 2020-08-27 06:31 | PCM.CR.HP2 ---
CR - History & Physical - General Arrival date:: 08/27/20 Arrival time:: 06:30 Date of Referral:: 08/24/20 Date of CR Evaluation:: 08/27/20 Referring Physician: DR. CADEN ALICEA Primary Diagnosis: PCI W/CORONARY STENT, AMI < 12 MONTHS - History of Present Cardiac Event Onset Date: Enter Onset Date of cardiac illnesses in Comment field below Acute Myocardial Infarction within 12 months:: Yes - 08/05/2020 NON-STEMI PTCA or coronary stenting:: Yes - 08/05/2020 Type of Symptoms:: CHEST PAINS, SHORTNESS OF BREATH PRESENTED TO EMERGENCY ROOM [facility]IA [facility]. Interventions with present event:: HEART CATH W/CORONARY STENT PLACEMENT - Sleep Disorder Evaluation Hx of Sleep Apnea: Yes Do you snore loudly (louder than talking or can be heard through closed doors)?: Yes - PATIENT DIAGNOSED WITH CHARBEL AND HAS HOME EQUIPMENT (CPAP) Do you often feel tired/ fatigued/ sleepy during daytime?: Yes Has anyone observed you stop breathing during sleep?: Yes History of Hypertension (for STOP score): Yes STOP Results: Positive - Medications Home Medications: Ambulatory Orders Medication Instructions Recorded aspirin 81 mg PO DAILY@0800 #0 tab 08/07/20 nitroglycerin 0.4 mg SUBLINGUAL Q5M PRN #20 tab 08/07/20 antiarthritic combination no.2 900 900 mg PO DAILY tab 08/24/20 mg tablet ascorbate calcium (vitamin C) 500 500 mg PO DAILY 08/24/20 mg tablet atorvastatin 40 mg tablet 40 mg PO QHS #90 tab 08/24/20 carvedilol 3.125 mg tablet 3.125 mg PO BID #180 tab 08/24/20 finasteride 5 mg tablet 5 mg PO DAILY tab 08/24/20 lisinopril 5 mg tablet 5 mg PO DAILY #90 tab 08/24/20 multivitamin 1 tab PO DAILY 08/24/20 tamsulosin 0.4 mg capsule 0.4 mg PO DAILY cap 08/24/20 ticagrelor 90 mg tablet 90 mg PO BID #180 tab 08/24/20 varenicline 0.5 mg (11)-1 mg (42) 1 tab PO PER PKG DIR tab 08/24/20 tablets in a dose pack - Allergies Allergies/Adverse Reactions: Allergies bee venom protein (honey bee) Allergy (Verified 08/24/20 12:23) Angioedema cashew nut Allergy (Verified 08/24/20 12:23) Anaphylaxis Pistacia Vera (Pistachio) Allergy (Verified 08/24/20 12:23) Anaphylaxis Advanced Directives - Advanced Directives 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 Living Will: No Advance Directives Information Provided: Yes Advance Directives on File: No DNR Order?:: No - MOLST See MOLST form: No Past Medical History - Covid-19 Screening Fever: No Unexplained muscle aches: No Current respiratory symptoms: No Upper respiratory infections symptoms: No Gastro-intestinal symptoms: No Fyp-Qnmo-Lhqusp symptoms: No Has tested positive for COVID-19 in last 30 days: No Had contact w/person w/symptoms or Covid-19 (+) last 14 days: No Has High Risk Exposures ID'd by Health dept/Inf Control team: No 65 years or older:: Yes Lives in Assisted Living facility:: No Has a chronic lung disease or moderate to severe asthma:: No Has a serious heart condition:: Yes Immunocompromised:: No Severely obese (Body Mass Index of 40 or higher):: No Diabetic:: No Has chronic kidney disease undergoing dialysis:: No - Past Medical Illness Medical History: Past Medical History (Last Reviewed 08/24/20 @ 15:[address] Caden Alicea MD) Atherosclerotic heart disease of [place] coronary artery without angina pectoris I25.10 BPH (benign prostatic hyperplasia) N40.0 Erectile disorder, acquired, situational, mild F52.21 History of non-ST elevation myocardial infarction (NSTEMI) Onset Date: 08/05/20 I25.2 Nicotine dependence F17.200 CHARBEL (obstructive sleep apnea) G47.33 cpap at night - not know settings -- sibilia Restless leg syndrome G25.81 - Past Surgical History Surgical History: Past Surgical History (Last Reviewed 08/24/20 @ 15:[address] Caden Alicea MD) History of coronary artery stent placement Onset Date: 08/05/20 Z95.5 PCI-JANNET-D1 w/ 2.5 x 22 mm Resolute Stent and JANNET-Distal LAD w/ 2.5 x 14 mm and Mid Lad w/ 3.0 x 18 mm Resolute Stent 5/13/21 - Family History Summary Family History: Family History (Last Reviewed 08/24/20 @ 15:[address] Caden Alicea MD) Other CAD (coronary artery disease) Social History - Smoking History Smoking Status: Current every day smoker Years Smokin - Did quit for about 3 years at one point. Packs Smoked per Day: 2 - Now doing less tahn 10 per day and on Chantix. Hx Tobacco Use: Yes Hx Smoking Exposure: Yes - Alcohol Use Alcohol Usage: Yes - OCCASIONALLY; beer, wine. - Substance Abuse Hx Substance Use: No - Occupation Occupation (List type of work in comments):: Employed Hours worked per day:: 8 - [employer] - Hobbies, Recreation, Social Activities Hobbies: Other - boating, hunting, fishing, play quitar music. Recreational Activities: I am able to engage in all my recreational activities - to a point, requored assitant dragging deer out of the holt. Social Environment - Status Marital Status: - Current Living Arrangements Living Environment:: Spouse - Children How many children do you have?: 3 Do any of your children live nearby?: Yes - 2 local one in [place]. - Safety Do you feel safe in your surroundings?: Yes Review of Systems - Review of Systems Hints: Right click = Denies (Slash). Left click = Reports ([place]) Review of Present Symptoms: Reports: Shortness of Breath with Exertion - havent really tried to exert myself, hoping the CR will help him determine what he can do., Dizziness/Lightheadedness - one episode the other night; felt he was going to pass out., Fatigue, Appetite - Special Diet - cutback on fried foods, eggs and less salt., Sleep - Normal. Denies: Heart Arrhythmia/Irregularities, Appetite - Normal - abnorminal; has just been eating breakfast and dinner., Sexual Changes - Pain Is Patient Pain Free?: Yes Pain Location: none Pain Level: 0/10 Risk Factor Assessment - Chief Complaint Chief Complaint: 65 yr old male patient of Dr. Alicea who presents to CR for evaluation. Patient had NSTEMI and coronary stent procedure on 08/05/2020 and is prepared to start CR. - Vital Signs Temperature: 97.5 F Respiratory Rate: 14 Pulse Ox: 95 Blood Pressure: 109/67 - Pulse Pulse Rate: 66 Pulse Rhythm: Regular - Hypertension Blood Pressure Sitting - Left Arm: 109/67 - Blood Cholesterol/Lipids Total Cholesterol (mg/dL) Goal = less than 200 mg/dL: 172 - 08/06/2020 HDL Cholesterol (mg/dL) Goal = less than 40 mg/dL: 59 LDL Cholesterol (mg/dL) Goal = less than 70 mg/dL: 95 Triglycerides (mg/dL) Goal = less than 150 mg/dL: 90 - Diabetes Nutrition Referral for Diabetes: No - Obesity Height: 6 ft Weight:: 212 lb Weight in Pounds: 212.0 lbs Weight Source: Standing Scale Body Mass Index (BMI): 28.7 Nutritional Referral for Obesity: No - Risk Stratification Risk Guidelines: Lowest Risk: Risk Factor for Diabetes, Risk Factor for Hypertension, Risk Factor for Sedentary Lifestyle, Risk Factor for Depression, Moderate Risk: Risk Factor for Dyslipidemia, Risk Factor for Obesity, Highest Risk: Risk Factor for Smoking - Family History Family History: Family History (Last Reviewed 08/24/20 @ 15:[address] Caden Alicea MD) Other CAD (coronary artery disease) Motivation - Motivation to Participate On a scale of 1 to 10, how prepared are you to commit to attending program?: 8 What do you see as barriers to successfully being able to complete the program?: none What do you see as the benefits of succesfully completing the program? In other words, what do you hope to get out of participating in the program?: getting healthier, resuming activities, learning what I can do. Are there issues you are dealing with that will interfere with completing the program?: none Do you have a spouse or signficant other, family or friends who will help support you to complete the program?: Yes
[2020-08-27 06:51] VITALS: BP 109/67; BMI 28.7
[2020-08-27 07:01] VITALS: BP 109/67; PULSE 66; RESP 14; TEMP 36.4; O2SAT 95; BMI 28.7
== END ==
PROVIDERS: PCP Family Medicine; Visit Provider Internal Medicine Cardiovascular Disease
DX: I25.10 Atherosclerotic heart disease of native coronary artery without angina pectoris (principal); I25.2 Old myocardial infarction; Z95.5 Presence of coronary angioplasty implant and graft; F17.200 Nicotine dependence, unspecified, uncomplicated; G25.81 Restless legs syndrome; G47.33 Obstructive sleep apnea (adult) (pediatric); N40.0 Benign prostatic hyperplasia without lower urinary tract symptoms; F52.21 Male erectile disorder

== ENCOUNTER 2020-09-10 10:30 | Outpatient (RCR) | payer OTHER, SELFPAY ==
[2020-08-27 06:51] VITALS: BMI 28.7
[2020-08-27 07:01] VITALS: BMI 28.7
== END 2020-09-22 23:59 ==
LOC: CR 10:30
PROVIDERS: PCP Family Medicine; Referring Provider Internal Medicine Cardiovascular Disease; Visit Provider Internal Medicine Cardiovascular Disease
DX: I25.10 Atherosclerotic heart disease of native coronary artery without angina pectoris (principal); I25.2 Old myocardial infarction; F17.200 Nicotine dependence, unspecified, uncomplicated; Z95.5 Presence of coronary angioplasty implant and graft
CPT/HCPCS: 93798

== ENCOUNTER → 2020-10-15 08:53 | Outpatient (CLI) | payer OTHER, SELFPAY ==
[2020-08-27 06:51] VITALS: BMI 28.7
[2020-08-27 07:01] VITALS: BMI 28.7
--- NOTE | 2020-10-15 08:55 | ART_ITS ---
Reason For Study: Claudication Procedure A bilateral lower extremity continuous wave Doppler with analog waveform analysis and ankle brachial indexes. Left Segmental Pressures Left brachial= 114mmHg. Left posterior tibial artery = 144mmHg. Left dorsalis pedis artery = 136mmHg. Left digit = 106 mmHg. The left dorsalis pedis waveforms are triphasic. The left posterior tibial artery waveforms are triphasic. Right Segmental Pressures Right brachial= 113mmHg. Right posterior tibial artery = 142mmHg. Right dorsalis pedis artery = 143mmHg. Right digit = 124 mmHg. The right dorsalis pedis waveforms are triphasic. The right posterior tibial artery waveforms are triphasic. Indices The right ankle brachial index by the dorsalis pedis is 1.25. The right ankle brachial index by the posterior tibial artery is 1.25. The right digital-brachial index is 1.09. The left ankle brachial index by the dorsalis pedis is 1.19. The left ankle brachial index by the posterior tibial artery is 1.26. The left digital-brachial index is 0.93. VL/Ankle Brachial Index Interpretation Summary Bilateral lower extremities with no occlusive disease at rest with bilateral tr iphasic flow. BRITTANEY 1.25 and 1.26. Digit brachial index normal at 1.09 and 0.93. Ordering Physician: Cory Zaragoza Referring Physician: Mark Anna MD Performed By: Alicia Crockett RVT and Student
--- NOTE | 2020-10-15 08:55 | CDU_ITS ---
Reason For Study: Carotid stenosis Rt. Velocities/BP Lt. Velocities/BP Prox CCA 94.3/22.6 cm/sec. Prox CCA 68/16.1 cm/sec. Mid CCA 82.6/21.3 cm/sec. Mid CCA 56.9/10.2 cm/sec. Dist CCA 69.5/21.3 cm/sec. Dist CCA 28.3/8.9 cm/sec. Prox ICA 48.5/17.3 cm/sec. Prox ICA 41.5/14.5 cm/sec. Mid ICA 57/24.8 cm/sec. Mid ICA 72.1/28.1 cm/sec. Dist ICA 63.6/23 cm/sec. Dist ICA 74.3/29.2 cm/sec. Rt. ICA/CCA = 0.77. Lt. ICA/CCA = 1.31. Prox ECA 77.3/14.7 cm/sec. Prox ECA 64.2/11 cm/sec. Rt. Vert. 40.1/13 cm/sec. Lt. Vert. 46.8/16 cm/sec. Right Extracranial There is intimal thickening but no significant atherosclerotic plaque noted in the right common carotid artery. There is heterogeneous, irregular atherosclerotic plaque noted in the right internal carotid artery. There is intimal thickening but no significant atherosclerotic plaque noted in the right external carotid artery. Antegrade flow is noted in the right vertebral artery. Left Extracranial There is intimal thickening but no significant atherosclerotic plaque noted in the left common carotid artery. There is heterogeneous, irregular atherosclerotic plaque noted in the left internal carotid artery. There is heterogeneous, irregular atherosclerotic plaque noted in the left external carotid artery. Antegrade flow is noted in the left vertebral artery. Procedure Carotid Duplex 46898. This is a Carotid Duplex examination using B-mode, color flow and specral Doppler. Exam performed in department. VL/Carotid Duplex Ultrasound Interpretation Summary Mild (<50%) stenosis right extracranial internal carotid. Mild (<50%) stenosis left extracranial internal carotid. Flow within the vertebral arteries is antegrade bilaterally. Ordering Physician: Cory Zaragoza Referring Physician: Mark Anna MD Performed By: Alicia Crockett RVT and Student
--- NOTE | 2020-10-15 08:56 | AAVD_ITS ---
Reason For Study: PVD Aorta Measurements Aorta Doppler Measurements Proximal aorta measures2.42 x 2.43cm. in cross- Peak systolic flow velocities within the proximal sectional axis. aorta measure 89.7 cm/sec. Proximal aorta measures2.40cm. in longitudinal Peak systolic flow velocities within the mid aorta axis. measure 77.6 cm/sec. Mid aorta measures1.89 x 1.83cm. in cross- Peak systolic flow velocities within the distal sectional axis. aorta measure 85.1 cm/sec. Mid aorta measures1.83cm. in longitudinal axis. Distal aorta measures2.77 x 3.02cm. in cross- sectional axis. Distal aorta measures2.80cm. in longitudinal axis. Left Iliac Artery Left iliac artery measures 0.96 x 0.98 cm. in the cross-sectional axis. Left iliac artery measures 0.97 cm. in the longitudinal axis. Peak systolic velocity in the left iliac artery measures 139.6 cm/sec. Right Iliac Artery Right iliac artery measures 0.89 x 0.87 cm. in the cross-sectional axis. Right iliac artery measures 0.92 cm. in the longitudinal axis. Peak systolic velocity in the right iliac artery measures 143.5 cm/sec. Procedure Aorta IVC Iliac vasculature or bypass grafts 25157. Exam performed in department. VL/Abd Aortic/IVC Duplex scan Interpretation Summary No aortic iliac aneurysm or stenosis noted. Ordering Physician: Cory Zaragoza Referring Physician: Mark Anna MD Performed By: Alicia Crockett RVT and Student
== END ==
PROVIDERS: PCP Family Medicine; Referring Provider Surgery Vascular Surgery; Visit Provider Surgery Vascular Surgery
DX: I65.23 Occlusion and stenosis of bilateral carotid arteries (principal); I71.4 Abdominal aortic aneurysm, without rupture; I70.213 Atherosclerosis of native arteries of extremities with intermittent claudication, bilateral legs
CPT/HCPCS: 93880; 93922; 93978

== ENCOUNTER → 2020-12-29 | Outpatient (CLI) | payer OTHER, SELFPAY ==
[2020-08-27 06:51] VITALS: BMI 28.7
== END | disposition home or self-care (01) ==
PROVIDERS: PCP Family Medicine; Referring Provider Family Medicine; Visit Provider Family Medicine
DX: U07.1 COVID-19 (principal)
CPT/HCPCS: 87635; U0005; U0003

== ENCOUNTER 2021-01-03 12:27 | Outpatient (CLI) | payer OTHER, SELFPAY ==
[2020-08-27 06:51] VITALS: BMI 28.7
[2021-01-03] MEDS: 0.9% Saline Lock 10 ML Syringe IV (12:41)
[2021-01-03 12:43] VITALS: BP 132/69; PULSE 68; RESP 16; TEMP 36.9; O2SAT 98; BMI 29.1
[2021-01-03 13:32] VITALS: BP 119/62; PULSE 64; RESP 16; TEMP 36.8; O2SAT 97
[2021-01-03 14:30] VITALS: BP 117/66; PULSE 66; RESP 16; TEMP 36.8; O2SAT 99
== END 2021-01-03 14:31 | disposition home or self-care (01) ==
LOC: MS3OUT 12:27 → MS3 12:28
PROVIDERS: PCP Family Medicine; Referring Provider Nurse Practitioner Adult Health; Visit Provider Nurse Practitioner Adult Health
DX: Z23 Encounter for immunization (principal); U07.1 COVID-19
CPT/HCPCS: J7050; M0243; A4216; Q0240

== ENCOUNTER 2021-04-18 06:51 | Outpatient (CLI) | payer OTHER, SELFPAY ==
[2020-08-27 06:51] VITALS: BMI 28.7
[2021-04-18 10:27] LABS: AST(SGOT) 15 U/L (15-37); Alanine Aminotransfer ALT/SGPT 30 U/L (16-61); Albumin, Serum 3.7 g/dL (3.2-5.0); Alkaline Phosphatase 58 U/L (45-117); Bilirubin, Direct 0.18 mg/dL (0.00-0.30); Cholesterol 152 mg/dL (200); Globulin 3.1 g/dL (2.2-4.2); High Density Lipoprotein 61 mg/dL; Protein, Total 6.8 g/dL (6.4-8.2); Triglycerides 106 mg/dL; Very Low Density Lipoprotein 21 mg/dL (5-40)
--- NOTE | 2021-04-18 17:59 | STRESSREP ---
Stress Test Report Exercise myocardial perfusion stress test. 65-year-old man with a history of coronary artery disease. Stress protocol: Resting EKG demonstrates normal sinus rhythm with a rate of 56 bpm normal intervals are noted. Resting blood pressure is 134/78 mmHg. The patient exercised according to regular [facility] protocol for total duration of 6 minutes and 57 seconds. Patient completed 57 seconds into stage III of the [facility]ish protocol. The maximum heart rate attained was 101 bpm which was 65% of maximum predicted heart rate the maximum workload was 9.8 metabolic equivalents. Patient did take his carvedilol. At rest there was a incomplete right bundle branch block noted. At peak exercise upsloping ST changes were noted with did not meet the criteria for ischemia. No shortness of breath or chest pain was noted suggestive of angina. The peak blood pressure was 158/80 mmHg. The test was terminated due to generalized fatigue. Myocardial perfusion protocol. 14.5 mCi of technetium 99m sestamibi was injected at rest. The patient exercised according to regular [facility] protocol for 6 minutes and 57 seconds. At peak exercise 44.6 mCi of technetium 99m sestamibi was injected stress images were obtained stress and rest images were reconstructed and compared in the short axis vertical long and horizontal long axis. Gated images were also obtained per Perfusion SPECT analysis: Review of the stress images demonstrate normal uptake of tracer noted in the anterior wall septum and inferior wall. The inferolateral wall has reduced perfusion noted on the stress images. The resting images demonstrates a similar reduction of perfusion in the inferolateral wall. A previous small infarct cannot be completely excluded however no obvious ischemia is noted. Gated SPECT analysis: The gated ejection fraction is 57%. Conclusion: Normal exercise myocardial perfusion stress test with no evidence of ischemia at a moderate to high workload. Previous inferior lateral infarct cannot be completely excluded. Preserved ejection fraction.
== END 2021-04-18 23:59 | disposition short-term general hospital (02) ==
PROVIDERS: PCP Family Medicine; Visit Provider Nurse Practitioner Family
DX: R07.9 Chest pain, unspecified (principal); I25.10 Atherosclerotic heart disease of native coronary artery without angina pectoris; Z95.5 Presence of coronary angioplasty implant and graft
CPT/HCPCS: 36415; 78452; 80061; 80076; 93017; A9500; A4216

== ENCOUNTER 2021-09-12 01:53 | Emergency (ER) | payer OTHER, SELFPAY ==
[2020-08-27 06:51] VITALS: BMI 28.7
[2021-09-12 01:54] VITALS: BP 140/86; PULSE 68; RESP 16; TEMP 36.2; O2SAT 98; BMI 28.5
--- NOTE | 2021-09-12 02:33 | EX.ED.GENINJ ---
HPI History of Present Illness Chief Complaint: Head Injury Informant: patient and spouse/S.O. Narrative Narrative: Patient is a 66-year-old male with history of coronary artery disease presenting with facial and head lacerations. Apparently patient was sleepwalking and his head went through his bedroom window. He did not fall through the window. It is a single pain [place] with no per the significant other. Patient is on Plavix. He is concerned he might need stitches through his bottom lip which is what brought him to the emergency room tonight. His significant other does not think he hit the window with too much force. Patient woke up immediately when this happened. He does not know when his last tetanus was. No other complaints at this time. Tetanus Immunization: Unknown [facility] Medical History Atherosclerotic heart disease of [place] coronary artery without angina pectoris BPH (benign prostatic hyperplasia) Erectile disorder, acquired, situational, mild History of non-ST elevation myocardial infarction (NSTEMI) (08/05/20) Nicotine dependence CHARBEL (obstructive sleep apnea) Restless leg syndrome Home Medications aspirin 81 mg tablet,delayed release 81 mg PO DAILY@0800 #0 tabs 08/07/20 [Rx Last Taken Unknown] nitroglycerin 0.4 mg sublingual tablet 0.4 mg sublingual Q5M PRN Chest pain #20 tabs 08/07/20 [Rx Last Taken Unknown] antiarthritic combination no.2 900 mg tablet (glucosamine-chondroitin) 900 mg PO DAILY 08/24/20 [History Last Taken Unknown] ascorbate calcium (vitamin C) 500 mg tablet 500 mg PO DAILY 08/24/20 [History Last Taken Unknown] finasteride 5 mg tablet 5 mg PO DAILY 08/24/20 [History Last Taken Unknown] multivitamin 1 tab PO DAILY 08/24/20 [History Last Taken Unknown] tamsulosin 0.4 mg capsule 0.4 mg PO DAILY 08/24/20 [History Last Taken Unknown] sertraline 100 mg tablet 100 mg PO DAILY 03/23/21 [History Last Taken Unknown] isosorbide mononitrate 30 mg tablet,extended release 24 hr 30 mg PO DAILY #90 tabs 06/23/21 [Rx Last Taken Unknown] clopidogrel 75 mg tablet 75 mg PO DAILY #90 tabs 08/01/21 [Rx Last Taken Unknown] atorvastatin 40 mg tablet 40 mg PO QHS #90 tabs 08/05/21 [Rx Last Taken Unknown] carvedilol 3.125 mg tablet 3.125 mg PO BID #180 tabs 08/05/21 [Rx Last Taken Unknown] lisinopril 5 mg tablet 5 mg PO DAILY Awaiting on mail order RX #30 tabs 08/05/21 [Rx Last Taken Unknown] Allergy/AdvReac Type Severity Reaction Status Date / Time bee venom protein (honey bee) Allergy Angioedema Verified 09/12/21 01:56 cashew nut Allergy Anaphylaxis Verified 09/12/21 01:56 Pistacia Vera (Pistachio) Allergy Anaphylaxis Verified 09/12/21 01:56 Family History Father CAD (coronary artery disease) Cancer Lung Cancer Grandfather CAD (coronary artery disease) Brother Hypertension Surgical History History of coronary artery stent placement (08/05/20) Social History household members: spouse Smoking Status: Former smoker how long ago did patient quit smoking: Quit cigarettes in February 2021, alcohol intake: current alcohol intake frequency: 3 or more drinks per day Alcohol type: beer substance use type: does not use caffeine: Yes Type: coffee Number of servings: 3 ROS ROS ED Constitutional Constitutional ED: Denies fever(s) Eyes Eyes: Reports change in vision right (secondary to swelling around eye ); Denies eye pain ENT ENT ED: Reports other Details: No epistaxis. Positive lower lip injury ; Denies dental pain or ear pain Cardiovascular Cardiovascular: Denies chest pain or syncope Respiratory/Chest Respiratory/Chest: Denies cough or dyspnea Gastrointestinal Gastrointestinal: Denies abdominal pain or nausea Genitourinary Genitourinary ED: Denies dysuria or hematuria Musculoskeletal Musculoskeletal: Denies arthralgias, back pain or myalgias Integumentary Reports Abrasions and wounds Neurologic Neurologic: Denies headache(s), paresthesias or weakness Psychiatric Psychiatric: Denies anxiety or depression Hematologic/Lymphatic Hematologic/Lymphatic: Denies easy bleeding or easy bruising EXAM Physical Exam Const Vital Signs: 09/12/21 01:54 09/12/21 01:57 Temperature 97.2 F L Temperature Source Oral Pulse Rate 68 Respiratory Rate 16 Respiratory Effort Normal Respiratory Depth Normal Respiratory Pattern Normal Blood Pressure 140/86 H Blood Pressure Mean 104 Pulse Ox 98 Oxygen Delivery Method Room Air Room Air Positive well nourished General Appearance ED: NAD HEENT HEENT Narrative: Bilateral cerumen impactions. trauma; Negative for tenderness Eyes PERRL and EOMs intact bilaterally General Eye ED: Yes other Other Details: Subconjunctival hemorrhage noted in the right lateral eye. There is periorbital ecchymosis noted of the right lateral eyebrow as well as underneath the right eye Resp normal respiratory effort and clear to auscultation bilaterally Cardio regular rhythm Cardio Narrative: 2+ bilateral radial pulses GI normal to inspection, nondistended, normoactive bowel sounds Extremity normal to inspection and full ROM Neuro oriented x3, CN's II-XII intact bilaterally, moves all extremities, no focal motor deficits and no sensory deficits noted Psych mental status grossly normal Skin Skin Narrative: 3 cm linear superficial abrasion underneath the right eye. There is a 2 centimeter by 3 cm superficial abrasion to the top of the head. Ecchymosis of the bottom lip with abrasion/laceration to the inside of the bottom lip as well as small linear abrasion just above the vermilion border of the left lower lip. All wound edges are well approximated and do not separate with pressure. Does not involve the vermilion border. No active bleeding at this time. MDM MDM MDM Narrative Medical decision making narrative: Patient is evaluated for facial injuries after his head actually went through a single pane window at home. Apparently patient was walking his sleep. His states that he is known for very active sleeping but he is never had an injury like this before. Wounds are clean and they are all very well approximated. There is no obvious area that requires laceration repair. Tetanus is updated. It seems like a low velocity injury and patient is a normal neurologic exam. He is agreeable with deferring CT of the head at this time. I have low suspicion for acute intracranial process. Patient is given return precautions. Counseled on localized swelling. Counseled to follow-up with ophthalmology if he has any worsening eye symptoms. He is not have any foreign body sensation in the eye and I do not think he has an associated corneal laceration/abrasion. Patient discharged home in stable condition. Discharge Plan Triage Chief Complaint: Head Injury ED Provider: Monse Sanchez Dx/Rx/DC Orders Clinical Impression: Abrasion of face, Subconjunctival bleed, Need for Tdap vaccination Instructions: ED Abrasion, ED Head Injury (Adult), ED Subconjunctival Hemorrhage Prescriptions: No Action finasteride 5 mg tablet 5 mg PO DAILY Label Comments: TAKE 1 TABLET BY MOUTH AT BEDTIME tamsulosin 0.4 mg capsule 0.4 mg PO DAILY multivitamin Tablet 1 tab PO DAILY glucosamine-chondroitin 900 mg tablet 900 mg PO DAILY ascorbate calcium (vitamin C) 500 mg tablet 500 mg PO DAILY sertraline 100 mg tablet 100 mg PO DAILY isosorbide mononitrate 30 mg tablet extended release 24 hr 30 mg PO DAILY Qty: 90 3RF aspirin 81 mg Tablet,Delayed Release (Dr/Ec) 81 mg PO DAILY@0800 Qty: 0 0RF nitroglycerin 0.4 mg Tablet, Sublingual 0.4 mg sublingual Q5M PRN (Reason: Chest pain) Qty: 20 0RF clopidogrel 75 mg tablet 75 mg PO DAILY Qty: 90 3RF lisinopril 5 mg tablet 5 mg PO DAILY Qty: 30 0RF atorvastatin 40 mg tablet 40 mg PO QHS Qty: 90 3RF carvedilol 3.125 mg tablet 3.125 mg PO BID Qty: 180 3RF Primary Care Provider: Isrrael Anna Referrals: Isrrael Anna MD [Primary Care Provider] - Disposition Disposition: Home, Self Care Discharge Date/Time: 09/12/21 03:33
[2021-09-12] MEDS: Diphth,Pertuss(Acell),Tet Vac 0.5 ML Vial IM (02:43)
== END 2021-09-12 03:33 | disposition home or self-care (01) ==
PROVIDERS: Emergency Provider Emergency Medicine; PCP Family Medicine; Visit Provider Emergency Medicine
DX: S00.81XA Abrasion of other part of head, initial encounter (principal); I25.10 Atherosclerotic heart disease of native coronary artery without angina pectoris; I25.2 Old myocardial infarction; Z23 Encounter for immunization; W25.XXXA Contact with sharp glass, initial encounter; Z95.5 Presence of coronary angioplasty implant and graft; Z87.891 Personal history of nicotine dependence
CPT/HCPCS: 90471; 90715; 99282

== ENCOUNTER 2021-10-20 19:58 | Emergency (ER) | payer OTHER, SELFPAY ==
[2020-08-27 06:51] VITALS: BMI 28.7
[2021-10-20] VITALS (12 sets, daily range): BP systolic 121–174; BP diastolic 78–100; PULSE 73–92; RESP 13–20; TEMP 36.6; O2SAT 93–99; BMI 31.1
--- NOTE | 2021-10-20 19:59 | EKG12_ITS ---
Test Reason : DYSRHYTHMIA Blood Pressure : / mmHG Vent. Rate : 095 BPM Atrial Rate : 095 BPM P-R Int : 208 ms QRS Dur : 170 ms QT Int : 412 ms P-R-T Axes : 069 088 043 degrees QTc Int : 517 ms Normal sinus rhythm Right bundle branch block Abnormal ECG Confirmed by CHRIS DERAS, MARSHA ([id number]), video editor ALEX GONZALEZ ([id number]) on 10/24/2021 11:30:36 AM Referred By: GLENNA Confirmed By:DARCIE PEREZ MD
--- NOTE | 2021-10-20 20:00 | CT_ITS ---
STUDY: CT CERVICAL SPINE WITHOUT CONTRAST REASON FOR EXAM: Male, 66 years old. Trauma RADIATION DOSAGE (If Supplied By Facility): CTDIvol = ( 25.33 ) mGy, DLP = ( 618.48 ) mGycm TECHNIQUE: High resolution transaxial imaging was performed without contrast material. Sagittal and coronal images were reconstructed. Individualized dose optimization techniques were used for this CT. COMPARISON: None FINDINGS: Normal craniovertebral junction. Normal anterior atlantoaxial articulation. Normal odontoid process. Normal cervical lordosis. No demonstrated fracture. C2-3: Normal disc height and morphology. Normal central canal. Foramina are patent. C3-4: Normal disc height and morphology. Normal central canal. Foramina are patent. C4-5: Normal disc height and morphology. Normal central canal. Foramina are patent. C5-6: Normal disc height and morphology. Normal central canal. Foramina are patent. C6-7: Normal disc height and morphology. Small central disc protrusion. Normal central canal. Foramina are patent. C7-T1: Normal disc height and morphology. Small central disc protrusion. Normal central canal. Foramina are patent. Nasogastric tube is coiled in the oropharynx and should be removed and replaced. CT/Spine Cervical without Contras IMPRESSION: Nasogastric tube coiled in the oropharynx. This should be removed and replaced. No evidence of cervical trauma. Small disc protrusions at C6-7 and C7-T1. Electronically Signed: Ximena Ritchie MD at 21:24 EDT Reading Location ID and State: [id number] / Tel , Service support ,
--- NOTE | 2021-10-20 20:01 | RAD_ITS ---
EXAM: PORTABLE AP SUPINE CHEST X-RAY OF 2027 HOURS ON 10/20/2021 REASON FOR EXAM: Intubation of a 66-year-old male. TECHNIQUE: A single view portable AP supine chest x-ray was performed per protocol. COMPARISON: 08/05/2020. FINDINGS: An endotracheal tube is noted with its distal tip lying 10.7 cm above the mely. No cardiomegaly or heart failure. No pulmonary infiltrates, atelectasis, effusion, pulmonary mass lesions. No pneumothorax or hemothorax. RAD/Chest 1 View (Portable) IMPRESSION: 1. Endotracheal tube with its distal tip lying 10.7 cm above the mely. 2. Otherwise, no active cardiopulmonary disease. 3. No pneumothorax or hemopneumothorax. Electronically Signed: Edin Boles MD at 21:24 EDT ,
[2021-10-20] MEDS: Rocuronium Bromide 50 MG/5 ML Vial IV (20:03)
--- NOTE | 2021-10-20 20:07 | EDS_ITS ---
HPI History of Present Illness Chief Complaint: Unresponsive Detail of Chief Complaint: Collapse going down stairs from back porch Informant: EMS Limited: coma (GCS 3 T) Onset/Context/Timing Onset: Hours Context: Sudden Onset Timing: Continuous Quality: Walking down steps patient collapsed Location: Family residence Mechanism/Context: Yes fall Current Severity: Severe Maximum Severity: Severe Worsened by: Unknown Relieved by: Nothing Associated Symptoms Length of loss of consciousness: Unknown Narrative Narrative: Per paramedics patient was walking down steps from back porch. There are 8 steps. Family heard a thud. He was at the bottom of steps. He apparently was not breathing. CPR was initiated. When squad arrived patient had no respiratory effort. Monitor revealed bradycardia. Rate was 40. There was no palpable pulses. Algorithm for PEA was initiated. When patient arrived he had an eye gel in place. Family states he was found facedown on a concrete landing. Since he was unresponsive with gasping snoring type respirations they turned him over and started CPR. He is on Plavix. He is not on an anticoagulant. Prior similar symptoms: No Recent Illness/Hospitalization: No [facility] Medical History Atherosclerotic heart disease of [place] coronary artery without angina pectoris BPH (benign prostatic hyperplasia) Erectile disorder, acquired, situational, mild History of non-ST elevation myocardial infarction (NSTEMI) (08/05/20) Nicotine dependence CHARBEL (obstructive sleep apnea) Restless leg syndrome Home Medications aspirin 81 mg tablet,delayed release 81 mg PO DAILY@0800 #0 tabs 08/07/20 [Rx Last Taken Unknown] nitroglycerin 0.4 mg sublingual tablet 0.4 mg sublingual Q5M PRN Chest pain #20 tabs 08/07/20 [Rx Last Taken Unknown] antiarthritic combination no.2 900 mg tablet (glucosamine-chondroitin) 900 mg PO DAILY 08/24/20 [History Last Taken Unknown] ascorbate calcium (vitamin C) 500 mg tablet 500 mg PO DAILY 08/24/20 [History Last Taken Unknown] finasteride 5 mg tablet 5 mg PO DAILY 08/24/20 [History Last Taken Unknown] multivitamin 1 tab PO DAILY 08/24/20 [History Last Taken Unknown] tamsulosin 0.4 mg capsule 0.4 mg PO DAILY 08/24/20 [History Last Taken Unknown] sertraline 100 mg tablet 100 mg PO DAILY 03/23/21 [History Last Taken Unknown] isosorbide mononitrate 30 mg tablet,extended release 24 hr 30 mg PO DAILY #90 tabs 06/23/21 [Rx Last Taken Unknown] clopidogrel 75 mg tablet 75 mg PO DAILY #90 tabs 08/01/21 [Rx Last Taken Unknown] atorvastatin 40 mg tablet 40 mg PO QHS #90 tabs 08/05/21 [Rx Last Taken Unknown] carvedilol 3.125 mg tablet 3.125 mg PO BID #180 tabs 08/05/21 [Rx Last Taken Unknown] lisinopril 5 mg tablet 5 mg PO DAILY Awaiting on mail order RX #30 tabs 08/05/21 [Rx Last Taken Unknown] clonazepam 1 mg tablet 1 mg PO QHS 10/20/21 [History Last Taken Unknown] Allergy/AdvReac Type Severity Reaction Status Date / Time bee venom protein (honey bee) Allergy Angioedema Verified 09/12/21 01:56 cashew nut Allergy Anaphylaxis Verified 09/12/21 01:56 Pistacia Vera (Pistachio) Allergy Anaphylaxis Verified 09/12/21 01:56 Family History Father CAD (coronary artery disease) Cancer Lung Cancer Grandfather CAD (coronary artery disease) Brother Hypertension Surgical History History of coronary artery stent placement (08/05/20) Social History household members: spouse Smoking Status: Former smoker how long ago did patient quit smoking: Quit cigarettes in February 2021, alcohol intake: current alcohol intake frequency: 3 or more drinks per day Alcohol type: beer substance use type: does not use caffeine: Yes Type: coffee Number of servings: 3 ROS ROS ED Review of Systems ROS Unobtainable: due to mental status EXAM Physical Exam Const Vital Signs: 10/20/21 19:59 10/20/21 20:12 10/20/21 20:12 Temperature 97.8 F Temperature Source Temporal Pulse Rate 79 Respiratory Rate 13 Respiratory Effort Mechanically Ventilated Mechanically Ventilated Respiratory Pattern Normal Normal Blood Pressure 158/91 H Blood Pressure Mean 113 Pulse Ox 97 Oxygen Delivery Method Ambu-Bag Oxygen Flow Rate (L/min) 15 Fraction of Inspired Oxygen (FIO2) 10/20/21 20:44 10/20/21 20:47 10/20/21 21:07 Temperature Temperature Source Pulse Rate 92 86 82 Respiratory Rate 17 14 16 Respiratory Effort Respiratory Pattern Blood Pressure 174/98 H 159/100 H 131/86 H Blood Pressure Mean 123 119 101 Pulse Ox 93 93 99 Oxygen Delivery Method Mechanical Ventilator Mechanical Ventilator Mechanical Ventilator Oxygen Flow Rate (L/min) Fraction of Inspired Oxygen (FIO2) 10/20/21 21:15 10/20/21 20:06 10/20/21 21:38 Temperature Temperature Source Pulse Rate 82 87 79 Respiratory Rate 17 16 20 H Respiratory Effort Respiratory Pattern Normal Blood Pressure 129/86 H 121/78 H Blood Pressure Mean 100 92 Pulse Ox 98 98 96 Oxygen Delivery Method Mechanical Ventilator Mechanical Ventilator Oxygen Flow Rate (L/min) Fraction of Inspired Oxygen (FIO2) 100 10/20/21 22:06 10/20/21 22:20 Temperature Temperature Source Pulse Rate 73 77 Respiratory Rate 18 18 Respiratory Effort Respiratory Pattern Blood Pressure 123/82 H 127/80 H Blood Pressure Mean 95 95 Pulse Ox 97 96 Oxygen Delivery Method Mechanical Ventilator Mechanical Ventilator Oxygen Flow Rate (L/min) Fraction of Inspired Oxygen (FIO2) Positive well nourished, well developed and obese; Negative for alert or oriented x3 General Appearance ED: well developed and NAD Orientation / Consciousness: obtunded Exam Limitations: altered mental status Nutritional Appearance: obese HEENT Reports TM's clear, nasal mucous membranes and turbinates normal, moist oral mucous membranes, oropharynx normal, dentition normal and gingiva normal HEENT Narrative: Patient has a large hematoma left frontal temporal area. There is no palp depression. trauma, abrasion, contusion and hematoma; Negative for raccoon eyes Face and Sinus: normal facial exam and other Clinically there is no evidence of [place] fracture. There is no evidence of facial trauma. There is no injury to his teeth. Nose: external nose normal, nares normal, no nasal polyps, nasal mucous membranes and turbinates normal, septum normal and no nasal discharge External Ear: external ears normal and mastoids normal External Auditory Canal: EAC's normal Tympanic Membrane ED: Yes TM's clear Mouth ED: Yes oral and palatal mucosa normal, Yes lips normal, Yes tongue normal and Yes salivary gland normal Mouth: oral and palatal mucosa normal, lips normal, tongue normal and salivary gland normal Throat: posterior oropharynx normal Eyes PERRL and no scleral icterus Eyes Narrative: Pupils are 3 to 4 mm in size and do react to light. There is no subconjunctival hemorrhage. There is no nystagmus. General Eye ED: Yes normal appearance of both eyes Neck Neck Narrative: Patient arrived in collar. There is no obvious palpable deformity. Trachea is midline. General: normal visual inspection Lymph Lymphatic: no lymphadenopathy noted Chest Wall inspection of chest normal and palpation of chest normal Chest Narrative: There is no crepitus subcutaneous air. There is no asymmetry with ventilation. Resp Resp Narrative: There is no respiratory effort. Patient is being bagged. Cardio regular rate, regular rhythm, S1 normal heart sound, S2 normal heart sound, no murmurs, no rub, no gallops, no clicks, no JVD and peripheral pulses 2+ throughout GI normal to inspection, nondistended, normoactive bowel sounds, soft to palpation and non-distended GI Narrative: There is no deformity to palpation of the pelvis. Male genitalia appear normal. external exam normal Back/Spine Back/Spine Narrative: No obvious back trauma. Extremity normal to inspection Extremity Narrative: There is no movement with noxious stimuli Neuro [place] Coma Scale: document GCS findings None None None 3 Plantar Reflex: Downgoing: bilateral Psych Psych Narrative: 3T is patient's GCS. Appearance: grossly normal Skin No no wounds General Skin Exam: no breakdown Hair: normal Nails: normal MDM MDM MDM Narrative Medical decision making narrative: Discern this represents a cardiac event that resulted in fall. Need to rule out intracranial bleed, fracture neck, intra-abdominal traumatic injury. CT of the head, C-spine and abdomen pelvis were ordered. EKG was ordered and reveals no acute ischemia. There is evidence of right bundle branch block. Patient's altered mental status may be due to anoxia due to lack of perfusion. There is no evidence of acute trauma to the head, neck or abdomen/pelvis other than a hematoma. There is a small effusion noted on the chest portion. Patient does have a 3.1 cm infrarenal abdominal aortic aneurysm. This is insignificant. Lab Data Attestation: I reviewed the patient's lab results. Lab results narrative: CBC is unremarkable. Comprehensive metabolic panel is marked for glucose of 249. CO2 is 21 with a normal anion gap coags are no. Urinalysis is markable. Tox is negative. Troponin is normal at 6. Labs: Laboratory Results - last 24 hr 10/20/21 10/20/21 10/20/21 20:10 20:10 20:10 WBC 8.5 RBC 4.65 Hgb 14.6 Hct 44.1 MCV 94.8 H MCH 31.4 MCHC 33.1 RDW Std Deviation 46.5 H RDW Coeff of [place] 13.3 Plt Count 198 MPV 9.9 Immature Gran % (Auto) 4.500 H Neut % (Auto) 49.7 Lymph % (Auto) 34.9 [place] % (Auto) 8.9 Eos % (Auto) 1.5 Baso % (Auto) 0.5 Absolute Neuts (auto) 4.2 Absolute Lymphs (auto) 2.96 Nucleated RBC % 0 PT INR APTT Sodium 142 Potassium 3.1 L Chloride 107 Carbon Dioxide 21.0 Anion Gap 14 BUN 12 Creatinine 1.01 Estim Creat Clear Calc 78.97 Est GFR (MDRD) Af Amer 95 Est GFR (MDRD) Non-Af 79 BUN/Creatinine Ratio 11.9 Glucose 249 H Calcium 7.9 L Total Bilirubin 0.30 Direct Bilirubin 0.17 AST 49 H ALT 54 Alkaline Phosphatase 76 Troponin I High Sens Total Protein 6.7 Albumin 3.6 Globulin 3.1 Urine Color Urine Clarity Urine pH Ur Specific [place] Urine Protein Urine Glucose (UA) Urine Ketones Urine Occult Blood Urine Nitrite Urine Bilirubin Urine Urobilinogen Ur Leukocyte Esterase Urine RBC Urine WBC Ur Squamous Epith Cells Urine Bacteria Urine Mucus Urine Opiates Screen Urine Methadone Screen Ur Barbiturates Screen Ur Phencyclidine Scrn Ur Amphetamines Screen MDMA (Ecstasy) Screen U Benzodiazepines Scrn Urine Cocaine Screen U Cannabinoids Screen Ur Drug Screen Comment Ethyl Alcohol 139.0 10/20/21 10/20/21 10/20/21 20:10 20:10 20:15 WBC RBC Hgb Hct MCV MCH MCHC RDW Std Deviation RDW Coeff of [place] Plt Count MPV Immature Gran % (Auto) Neut % (Auto) Lymph % (Auto) [place] % (Auto) Eos % (Auto) Baso % (Auto) Absolute Neuts (auto) Absolute Lymphs (auto) Nucleated RBC % PT 12.5 INR 1.0 APTT 28.1 Sodium Potassium Chloride Carbon Dioxide Anion Gap BUN Creatinine Estim Creat Clear Calc Est GFR (MDRD) Af Amer Est GFR (MDRD) Non-Af BUN/Creatinine Ratio Glucose Calcium Total Bilirubin Direct Bilirubin AST ALT Alkaline Phosphatase Troponin I High Sens 6 Total Protein Albumin Globulin Urine Color Urine Clarity Urine pH Ur Specific [place] Urine Protein Urine Glucose (UA) Urine Ketones Urine Occult Blood Urine Nitrite Urine Bilirubin Urine Urobilinogen Ur Leukocyte Esterase Urine RBC Urine WBC Ur Squamous Epith Cells Urine Bacteria Urine Mucus Urine Opiates Screen NEGATIVE Urine Methadone Screen NEGATIVE Ur Barbiturates Screen NEGATIVE Ur Phencyclidine Scrn NEGATIVE Ur Amphetamines Screen NEGATIVE MDMA (Ecstasy) Screen NEGATIVE U Benzodiazepines Scrn NEGATIVE Urine Cocaine Screen NEGATIVE U Cannabinoids Screen NEGATIVE Ur Drug Screen Comment Ethyl Alcohol 10/20/21 20:15 WBC RBC Hgb Hct MCV MCH MCHC RDW Std Deviation RDW Coeff of [place] Plt Count MPV Immature Gran % (Auto) Neut % (Auto) Lymph % (Auto) [place] % (Auto) Eos % (Auto) Baso % (Auto) Absolute Neuts (auto) Absolute Lymphs (auto) Nucleated RBC % PT INR APTT Sodium Potassium Chloride Carbon Dioxide Anion Gap BUN Creatinine Estim Creat Clear Calc Est GFR (MDRD) Af Amer Est GFR (MDRD) Non-Af BUN/Creatinine Ratio Glucose Calcium Total Bilirubin Direct Bilirubin AST ALT Alkaline Phosphatase Troponin I High Sens Total Protein Albumin Globulin Urine Color Straw Urine Clarity Clear Urine pH 6.0 Ur Specific [place] 1.010 Urine Protein 30 H Urine Glucose (UA) 50 H Urine Ketones Negative Urine Occult Blood 10 H Urine Nitrite Negative Urine Bilirubin Negative Urine Urobilinogen Normal Ur Leukocyte Esterase Negative Urine RBC 0-5 SEEN Urine WBC 0 SEEN Ur Squamous Epith Cells 0 SEEN Urine Bacteria 0 SEEN Urine Mucus 0 SEEN Urine Opiates Screen Urine Methadone Screen Ur Barbiturates Screen Ur Phencyclidine Scrn Ur Amphetamines Screen MDMA (Ecstasy) Screen U Benzodiazepines Scrn Urine Cocaine Screen U Cannabinoids Screen Ur Drug Screen Comment Ethyl Alcohol ABG Data ABG results: ABG 10/20/21 20:22 Specimen Type ART Sample Site R Radial pH 7.07 L* Bicarbonate Actual 22.7 Total CO2 25 Base Excess -7 L O2 Saturation 100 H O2 % 100 ABG pCO2 78.4 H* ABG pO2 356 H* Jak Test Negative O2 Delivery Device Bagging Crit Call To/Read Back Yes Radiography Chest X-Ray - ED: 1 View (Single view portable chest x-ray reveals endotracheal tube to be approximately 3 cm above the mely. The cardiac silhouette size is unremarkable. There is no evidence of pneumothorax or hemothorax. There is no obvious fractured ribs. This was independently reviewed and interpreted by me.) and Read by ED Physician (KUB reveals no presence of the NG. The NG is noted in the mouth on the ingot stripper film for the neck/abdomen.) Diagnostic Testing: Clinical Impression(s) from Imaging Studies Cervical Spine CT 10/20/21 20:00 IMPRESSION: Nasogastric tube coiled in the oropharynx. This should be removed and replaced. No evidence of cervical trauma. Small disc protrusions at C6-7 and C7-T1. Electronically Signed: Ximena Ritchie MD at 21:24 EDT Reading Location ID and State: [place] / Tel , Service support , Chest X-Ray 10/20/21 20:01 IMPRESSION: 1. Endotracheal tube with its distal tip lying 10.7 cm above the mely. 2. Otherwise, no active cardiopulmonary disease. 3. No pneumothorax or hemopneumothorax. Electronically Signed: Edin Boles MD at 21:24 EDT , Abdomen/Pelvis CT 10/20/21 20:20 IMPRESSION: 1. Trace right pleural effusion. 2. Infrarenal AAA. 3. No evidence of trauma. Electronically Signed: Ximena Ritchie MD at 21:43 EDT Reading Location ID and State: [place] / Tel , Service support , Brain CT 10/20/21 20:20 IMPRESSION: Scalp hematoma. No acute intracranial findings. Electronically Signed: Ximena Ritchie MD at 21:16 EDT Reading Location ID and State: [place] / Tel , Service support , KUB X-Ray 10/20/21 20:21 IMPRESSION: Nonvisualized nasogastric tube. Nonobstructive abdomen. Electronically Signed: Ximena Ritchie MD at 21:31 EDT , CT reveals a large hematoma. There is no obvious skull fracture. There is no evidence of blood in the sinuses. There is no evidence of subdural, epidural, traumatic subarachnoid hemorrhage or contusion per my independent review. Awaiting formal read by radiologist. C-spine film reveals no soft tissue swelling or, fracture, subluxation or dislocation. CT of the abdomen reveals no injury to the liver or spleen or kidneys per my review. There is no evidence of pneumoperitoneum. Awaiting radiology interpretation. EKG Initial EKG: Attestation: I personally reviewed and interpreted this EKG as follows: Interpretation: Sinus Rhythm (Sinus rhythm rate of 95. The right bundle branch block. VA interval 208 ms. QS duration 170 ms. QT duration 412 ms. [place] is normal) Prior: Changed (The right bundle branch was noted on August 07, 2020. There is more pronounced ST-T wave changes. This could be due to the fact that patient had a cardiopulmonary arrest versus ischemia.) Procedures Intubations Intubation Method: orotracheal Intubation Verification: Positive color change Intubation Complications: no complications Other Procedures Procedure(s): 1. Patient was administered 50 mg of rocuronium. Patient was easily oral tracheal intubated once his jaws were no longer clenched shut. He was intubated using a 7.5 endotracheal tube. This was successful on first attempt. Breath sounds were noted bilaterally. There is appropriate color change on the capnometer. 2. OG was placed by me without difficulty. 3. Rodriguez was placed per nursing staff. Critical Care Time Critical Care Time: Yes Critical care time (excluding procedures): 30-74 minutes (42), Including time spent: (History, physical, documentation, discussion with EMS, interpretation laboratory results), Discussing w/Patient &/or Family/Foil Cutter (, family members, son-in-law who is a physician), Discussing w/Consultants (Case discussed with hospitalist. Because patient fell down a flight of steps recommend transfer to a tertiary center. Spoke with family they are requesting [facility]), Arranging Admission or Transfer (For the second time with the nurse for [facility] transfer line. She will contact the [facility]U ophthalmic medical assistant.) and Performing Direct Patient Care at Bedside Discharge Plan Triage Chief Complaint: Unresponsive Other Complaint: CPR ED Provider: Sohan Munoz Dx/Rx/DC Orders Clinical Impression: Cardiac arrest with successful resuscitation, Hyperlipidemia, History of peripheral arterial disease, CHI (closed head injury), History of DE (myocardial infarction), Fall (on) (from) other stairs and steps, initial encounter, Alcohol intoxication with blood alcohol level 0.08-0.29, Aneurysm of infrarenal abdominal aorta, Pleural effusion, Acute respiratory failure with hypercapnia Prescriptions: No Action finasteride 5 mg tablet 5 mg PO DAILY Label Comments: TAKE 1 TABLET BY MOUTH AT BEDTIME tamsulosin 0.4 mg capsule 0.4 mg PO DAILY multivitamin Tablet 1 tab PO DAILY glucosamine-chondroitin 900 mg tablet 900 mg PO DAILY ascorbate calcium (vitamin C) 500 mg tablet 500 mg PO DAILY sertraline 100 mg tablet 100 mg PO DAILY isosorbide mononitrate 30 mg tablet extended release 24 hr 30 mg PO DAILY Qty: 90 3RF aspirin 81 mg Tablet,Delayed Release (Dr/Ec) 81 mg PO DAILY@0800 Qty: 0 0RF nitroglycerin 0.4 mg Tablet, Sublingual 0.4 mg sublingual Q5M PRN (Reason: Chest pain) Qty: 20 0RF clonazepam 1 mg tablet 1 mg PO QHS clopidogrel 75 mg tablet 75 mg PO DAILY Qty: 90 3RF lisinopril 5 mg tablet 5 mg PO DAILY Qty: 30 0RF atorvastatin 40 mg tablet 40 mg PO QHS Qty: 90 3RF carvedilol 3.125 mg tablet 3.125 mg PO BID Qty: 180 3RF Primary Care Provider: Isrrael Anna Referrals: Isrrael Anna MD [Primary Care Provider] - Disposition Disposition: Acute Care Hospital Discharge Location: [facility]
[2021-10-20 20:16] LABS: Bacteria 0 SEEN /hpf (None Seen); Mucous, Urine 0 SEEN /hpf (<or=2+); Squamous Epithelial Cells - UA 0 SEEN /hpf (0-5); White Blood Cells 0 SEEN /hpf (0-5)
[2021-10-20 20:18] LABS: Absolute Lymphocyte Count 2.96 X10^3/uL (0.83-4.51); Absolute Neutrophil Count 4.2 X10^3/uL (2.0-7.7); Basophil# 0.04 X10^3/uL; Basophil% 0.5 % (0-1); Eosinophil# 0.13 X10^3/uL; Eosinophils% 1.5 % (0-5); Hematocrit 44.1 % (40-54); Hemoglobin 14.6 g/dL (13.0-16.5); Lymphocyte # 2.96 X10^3/ul (0.83-4.51); Lymphocyte % 34.9 % (19-41); Mean Corp Hgb Conc 33.1 g/dL (32-36); Mean Corpuscular Hgb 31.4 pg (27.0-32.0); Mean Corpuscular Volume 94.8 fL (80-94); Mean Platelet Vol. 9.9 fl (6.2-12.0); Monocyte# 0.75 X10^3/uL; Monocyte% 8.9 % (0-10); NRBC Flagged by Analyzer 0 % (0-5); Neutrophil # 4.21 X10^3/uL (2.7-7.7); Neutrophil % 49.7 % (47-70); Platelet Count 198 K/mm3 (150-450); RBC Distribution Width CV 13.3 % (11.6-14.6); RBC Distribution Width SD 46.5 fl (35.1-43.9); Red Blood Count 4.65 M/mm3 (4.6-6.2); White Blood Count 8.5 K/mm3 (4.4-11.0)
[2021-10-20 20:20] LABS: Glucose, Dipstick 50 mg/dl (Normal); Ketone-Dipstick Negative (Negative); Leukocyte Esterase-Dipstick Negative /ul (Negative); Nitrite-Dipstick Negative (Negative); Occult Blood-Urine 10 /ul (Negative); Protein-Dipstick 30 mg/dl (Negative); Urine Bilirubin Dipstick Negative (Negative); Urine Urobilinogen Normal (Normal)
--- NOTE | 2021-10-20 20:20 | CT_ITS ---
STUDY: CT BRAIN WITHOUT CONTRAST REASON FOR EXAM: Male, 66 years old. Trauma RADIATION DOSAGE (If Supplied By Facility): CTDIvol = ( 44.99 ) mGy, DLP = ( 931.09 ) mGycm TECHNIQUE: Transaxial CT imaging of the brain was performed without administration of intravenous contrast material. Individualized dose optimization techniques were used for this CT. COMPARISON: No relevant priors. FINDINGS: Large left frontal scalp hematoma. Normal calvarium. Normal size ventricles and extra-axial spaces for the patient''s age. Normal white matter tracts of the cerebral hemispheres. Normal basal ganglia and thalami. Normal brainstem. Normal cerebellum. There is no intracranial hemorrhage. There are no findings of an acute ischemic infarction. Normal visualized paranasal sinuses. CT/Brain/Head without Contrast IMPRESSION: Scalp hematoma. No acute intracranial findings. Electronically Signed: Ximena Ritchie MD at 21:16 EDT Reading Location ID and State: [id number] / Tel , Service support ,
--- NOTE | 2021-10-20 20:20 | CT_ITS ---
EXAM: CT ABDOMEN AND PELVIS WITH INTRAVENOUS CONTRAST CLINICAL INDICATION: Multiple trauma -- TRAUMA ONLY: IV Contrast. Dont wait for creatinine TECHNIQUE: Helically acquired images were obtained of the abdomen and pelvis with intravenous contrast. This CT exam was performed using one or more of the following dose reduction techniques: automated exposure control, adjustment of the mA and/or kV according to patient size, and/or use of iterative reconstruction technique. This report was created using [employer] report generation technology. CONTRAST: 100ML OF ISOVUE 300 COMPARISON: None. FINDINGS: LOWER THORAX: Trace right pleural effusion. No cardiomegaly. ABDOMEN: LIVER: Unremarkable. Homogeneous. No focal mass. GALLBLADDER AND BILE DUCTS: Unremarkable. No calcified gallstones. No gallbladder distention or wall edema. No intra- or extrahepatic biliary ductal dilation. PANCREAS: Unremarkable. No focal cystic or solid mass. SPLEEN: Unremarkable. Normal size without focal cystic or solid mass. ADRENALS: Unremarkable. No nodules. KIDNEYS AND URETERS: Unremarkable. Normal renal size and position. No hydronephrosis. STOMACH AND BOWEL: Unremarkable. No stomach or bowel distention. No focal inflammatory change. PELVIS: APPENDIX: No evidence of acute appendicitis. BLADDER: Bladder is catheterized and decompressed. REPRODUCTIVE: Unremarkable as visualized. No mass. ABDOMEN and PELVIS: INTRAPERITONEAL SPACE: Unremarkable. No ascites or other fluid collection. No free air. BONES/JOINTS: Mild degenerative changes of the thoracolumbar spine. No demonstrated fracture. No suspicious lytic or blastic abnormality. SOFT TISSUES: Unremarkable. No discrete abdominal or pelvic wall hernia. VASCULATURE: 3.1 cm infrarenal abdominal aortic aneurysm. No dissection. LYMPH NODES: Unremarkable. No enlarged lymph nodes. CT/Abdomen/Pelvis WITH Contrast IMPRESSION: 1. Trace right pleural effusion. 2. Infrarenal AAA. 3. No evidence of trauma. Electronically Signed: Ximena Ritchie MD at 21:43 EDT Reading Location ID and State: [id number] / Tel , Service support ,
--- NOTE | 2021-10-20 20:21 | RAD_ITS ---
STUDY: X-RAY - ABDOMEN/PELVIS REASON FOR EXAM: Male, 66 years old. ng placement, trauma, unresponsive TECHNIQUE: KUB COMPARISON: None. FINDINGS: Lung bases are clear. Nasogastric tube is not visualized. There is a non-obstructive bowel gas pattern. There is no organomegaly. No abnormal calcifications. Soft tissues and bony structures are unremarkable. RAD/Abdomen Single View IMPRESSION: Nonvisualized nasogastric tube. Nonobstructive abdomen. Electronically Signed: Ximena Ritchie MD at 21:31 EDT Reading Location ID and State: [id number] / Tel , Service support ,
[2021-10-20 20:23] LABS: Color, Urine Straw (Yellow)
[2021-10-20 20:24] LABS: Urine Clarity Clear (Clear)
--- NOTE | 2021-10-20 20:24 | CPS ---
Critical pH and CO2 values, Dr. Munoz notified
[2021-10-20 20:26] LABS: Red Blood Cells-Urine 0-5 SEEN /hpf (0-5)
[2021-10-20 20:27] LABS: Partial Thromboplast Time 28.1 Seconds (24.1-36.2); Prothrombin Time (Protime)PT. 12.5 SECONDS (11.7-14.9)
[2021-10-20 20:29] LABS: Amphetamine Urine VISTA NEGATIVE (<1000 ng/mL); Barbiturate Urine VISTA NEGATIVE (< 200 ng/mL); Benzodiazepine Urine VISTA NEGATIVE (< 200 ng/mL); Cocaine Urine VISTA NEGATIVE (< 300 ng/mL); Ecstacy Urine VISTA NEGATIVE (< 500 ng/mL); Methadone Urine VISTA NEGATIVE (< 300 ng/mL); PCP Urine VISTA NEGATIVE (< 25 ng/mL); THC Urine VISTA NEGATIVE (< 50 ng/mL); Vista UDS pH Range 5
[2021-10-20 20:30] LABS: Allen Test Negative; Base Excess -7 mmol/L (-2 to +2); Bicarbonate 22.7 mmol/L (22-26); Blood Gas Specimen Type ART; FI02 100; O2 Delivery Device Bagging; PO2 356 mmHG (75-100); SITE R Radial; SO2 100 % (95-99); Total Carbon Dioxide 25 mmol/L; pCO2 78.4 mmHg (35-45); pH 7.07 (7.35-7.45)
[2021-10-20 20:37] LABS: AST(SGOT) 49 U/L (15-37); Alanine Aminotransfer ALT/SGPT 54 U/L (16-61); Albumin, Serum 3.6 g/dL (3.2-5.0); Alkaline Phosphatase 76 U/L (45-117); Anion Gap 14 (5-15); BUN 12 mg/dL (7-18); BUN/Creat Ratio 11.9 RATIO (10-20); Bilirubin, Direct 0.17 mg/dL (0.00-0.30); Calcium,Total 7.9 mg/dL (8.5-10.1); Chloride 107 mmol/L (98-107); Creatinine, Serum 1.01 mg/dL (0.70-1.30); EST Glomerular Filtration Rate 79 mL/min (>60); Est Glom Filt Rate - Afr Amer 95 mL/min (>60); Estimated Creatinine Clearance 78.97 ml/min; Globulin 3.1 g/dL (2.2-4.2); Glucose 249 mg/dL (74-106); Potassium 3.1 mmol/L (3.5-5.1); Protein, Total 6.7 g/dL (6.4-8.2); Sodium Level 142 mmol/L (136-145)
[2021-10-20] MEDS: Diphth,Pertuss(Acell),Tet Vac 0.5 ML Vial IM (20:41)
[2021-10-20 21:09] LABS: Troponin-I HS 6 pg/mL (3.0-78.0)
[2021-10-20] MEDS: fentaNYL 100 MCG/2 ML Ampul 50 MCG IV (21:45)
--- NOTE | 2021-10-20 23:24 | EDS_ITS ---
HPI History of Present Illness Chief Complaint: Unresponsive Narrative Narrative: This patient was seen by Dr. Munoz. He was signed out to me pending transfer. Please see my addendum to Dr. Munoz's note for the patient's disposition [facility] Medical History Atherosclerotic heart disease of [place] coronary artery without angina pectoris BPH (benign prostatic hyperplasia) Erectile disorder, acquired, situational, mild History of non-ST elevation myocardial infarction (NSTEMI) (08/05/20) Nicotine dependence CHARBEL (obstructive sleep apnea) Restless leg syndrome Home Medications aspirin 81 mg tablet,delayed release 81 mg PO DAILY@0800 #0 tabs 08/07/20 [Rx Last Taken Unknown] nitroglycerin 0.4 mg sublingual tablet 0.4 mg sublingual Q5M PRN Chest pain #20 tabs 08/07/20 [Rx Last Taken Unknown] antiarthritic combination no.2 900 mg tablet (glucosamine-chondroitin) 900 mg PO DAILY 08/24/20 [History Last Taken Unknown] ascorbate calcium (vitamin C) 500 mg tablet 500 mg PO DAILY 08/24/20 [History Last Taken Unknown] finasteride 5 mg tablet 5 mg PO DAILY 08/24/20 [History Last Taken Unknown] multivitamin 1 tab PO DAILY 08/24/20 [History Last Taken Unknown] tamsulosin 0.4 mg capsule 0.4 mg PO DAILY 08/24/20 [History Last Taken Unknown] sertraline 100 mg tablet 100 mg PO DAILY 03/23/21 [History Last Taken Unknown] isosorbide mononitrate 30 mg tablet,extended release 24 hr 30 mg PO DAILY #90 tabs 06/23/21 [Rx Last Taken Unknown] clopidogrel 75 mg tablet 75 mg PO DAILY #90 tabs 08/01/21 [Rx Last Taken Unknown] atorvastatin 40 mg tablet 40 mg PO QHS #90 tabs 08/05/21 [Rx Last Taken Unknown] carvedilol 3.125 mg tablet 3.125 mg PO BID #180 tabs 08/05/21 [Rx Last Taken Unknown] lisinopril 5 mg tablet 5 mg PO DAILY Awaiting on mail order RX #30 tabs 08/05/21 [Rx Last Taken Unknown] clonazepam 1 mg tablet 1 mg PO QHS 10/20/21 [History Last Taken Unknown] Allergy/AdvReac Type Severity Reaction Status Date / Time bee venom protein (honey bee) Allergy Angioedema Verified 09/12/21 01:56 cashew nut Allergy Anaphylaxis Verified 09/12/21 01:56 Pistacia Vera (Pistachio) Allergy Anaphylaxis Verified 09/12/21 01:56 Family History Father CAD (coronary artery disease) Cancer Lung Cancer Grandfather CAD (coronary artery disease) Brother Hypertension Surgical History History of coronary artery stent placement (08/05/20) Social History household members: spouse Smoking Status: Former smoker how long ago did patient quit smoking: Quit cigarettes in February 2021, alcohol intake: current alcohol intake frequency: 3 or more drinks per day Alcohol type: beer substance use type: does not use caffeine: Yes Type: coffee Number of servings: 3 EXAM Physical Exam Const Vital Signs: 10/20/21 19:59 10/20/21 20:12 10/20/21 20:12 Temperature 97.8 F Temperature Source Temporal Pulse Rate 79 Respiratory Rate 13 Respiratory Effort Mechanically Ventilated Mechanically Ventilated Respiratory Pattern Normal Normal Blood Pressure 158/91 H Blood Pressure Mean 113 Pulse Ox 97 Oxygen Delivery Method Ambu-Bag Oxygen Flow Rate (L/min) 15 Fraction of Inspired Oxygen (FIO2) 10/20/21 20:44 10/20/21 20:47 10/20/21 21:07 Temperature Temperature Source Pulse Rate 92 86 82 Respiratory Rate 17 14 16 Respiratory Effort Respiratory Pattern Blood Pressure 174/98 H 159/100 H 131/86 H Blood Pressure Mean 123 119 101 Pulse Ox 93 93 99 Oxygen Delivery Method Mechanical Ventilator Mechanical Ventilator Mechanical Ventilator Oxygen Flow Rate (L/min) Fraction of Inspired Oxygen (FIO2) 10/20/21 21:15 10/20/21 20:06 10/20/21 21:38 Temperature Temperature Source Pulse Rate 82 87 79 Respiratory Rate 17 16 20 H Respiratory Effort Respiratory Pattern Normal Blood Pressure 129/86 H 121/78 H Blood Pressure Mean 100 92 Pulse Ox 98 98 96 Oxygen Delivery Method Mechanical Ventilator Mechanical Ventilator Oxygen Flow Rate (L/min) Fraction of Inspired Oxygen (FIO2) 100 10/20/21 22:06 10/20/21 22:20 10/20/21 22:43 Temperature Temperature Source Pulse Rate 73 77 75 Respiratory Rate 18 18 18 Respiratory Effort Respiratory Pattern Blood Pressure 123/82 H 127/80 H 132/86 H Blood Pressure Mean 95 95 101 Pulse Ox 97 96 95 Oxygen Delivery Method Mechanical Ventilator Mechanical Ventilator Mechanical Ventilator Oxygen Flow Rate (L/min) Fraction of Inspired Oxygen (FIO2) 10/20/21 23:14 10/20/21 23:59 10/21/21 00:20 Temperature Temperature Source Pulse Rate 76 78 79 Respiratory Rate 18 18 20 H Respiratory Effort Respiratory Pattern Blood Pressure 149/86 H 132/88 H 151/83 H Blood Pressure Mean 107 102 105 Pulse Ox 95 98 98 Oxygen Delivery Method Mechanical Ventilator Mechanical Ventilator Mechanical Ventilator Oxygen Flow Rate (L/min) Fraction of Inspired Oxygen (FIO2) 10/21/21 00:54 10/21/21 00:53 Temperature Temperature Source Pulse Rate 80 80 Respiratory Rate 22 H 25 H Respiratory Effort Respiratory Pattern Tachypnea Blood Pressure 154/89 H Blood Pressure Mean 110 Pulse Ox 97 96 Oxygen Delivery Method Mechanical Ventilator Oxygen Flow Rate (L/min) Fraction of Inspired Oxygen (FIO2) 30 MDM MDM Lab Data Labs: Laboratory Results - last 24 hr 10/20/21 10/20/21 10/20/21 20:10 20:10 20:10 WBC 8.5 RBC 4.65 Hgb 14.6 Hct 44.1 MCV 94.8 H MCH 31.4 MCHC 33.1 RDW Std Deviation 46.5 H RDW Coeff of [place] 13.3 Plt Count 198 MPV 9.9 Immature Gran % (Auto) 4.500 H Neut % (Auto) 49.7 Lymph % (Auto) 34.9 [place] % (Auto) 8.9 Eos % (Auto) 1.5 Baso % (Auto) 0.5 Absolute Neuts (auto) 4.2 Absolute Lymphs (auto) 2.96 Nucleated RBC % 0 PT INR APTT Sodium 142 Potassium 3.1 L Chloride 107 Carbon Dioxide 21.0 Anion Gap 14 BUN 12 Creatinine 1.01 Estim Creat Clear Calc 78.97 Est GFR (MDRD) Af Amer 95 Est GFR (MDRD) Non-Af 79 BUN/Creatinine Ratio 11.9 Glucose 249 H Calcium 7.9 L Total Bilirubin 0.30 Direct Bilirubin 0.17 AST 49 H ALT 54 Alkaline Phosphatase 76 Troponin I High Sens Total Protein 6.7 Albumin 3.6 Globulin 3.1 Urine Color Urine Clarity Urine pH Ur Specific [place] Urine Protein Urine Glucose (UA) Urine Ketones Urine Occult Blood Urine Nitrite Urine Bilirubin Urine Urobilinogen Ur Leukocyte Esterase Urine RBC Urine WBC Ur Squamous Epith Cells Urine Bacteria Urine Mucus Urine Opiates Screen Urine Methadone Screen Ur Barbiturates Screen Ur Phencyclidine Scrn Ur Amphetamines Screen MDMA (Ecstasy) Screen U Benzodiazepines Scrn Urine Cocaine Screen U Cannabinoids Screen Ur Drug Screen Comment Ethyl Alcohol 139.0 10/20/21 10/20/21 10/20/21 20:10 20:10 20:15 WBC RBC Hgb Hct MCV MCH MCHC RDW Std Deviation RDW Coeff of [place] Plt Count MPV Immature Gran % (Auto) Neut % (Auto) Lymph % (Auto) [place] % (Auto) Eos % (Auto) Baso % (Auto) Absolute Neuts (auto) Absolute Lymphs (auto) Nucleated RBC % PT 12.5 INR 1.0 APTT 28.1 Sodium Potassium Chloride Carbon Dioxide Anion Gap BUN Creatinine Estim Creat Clear Calc Est GFR (MDRD) Af Amer Est GFR (MDRD) Non-Af BUN/Creatinine Ratio Glucose Calcium Total Bilirubin Direct Bilirubin AST ALT Alkaline Phosphatase Troponin I High Sens 6 Total Protein Albumin Globulin Urine Color Urine Clarity Urine pH Ur Specific [place] Urine Protein Urine Glucose (UA) Urine Ketones Urine Occult Blood Urine Nitrite Urine Bilirubin Urine Urobilinogen Ur Leukocyte Esterase Urine RBC Urine WBC Ur Squamous Epith Cells Urine Bacteria Urine Mucus Urine Opiates Screen NEGATIVE Urine Methadone Screen NEGATIVE Ur Barbiturates Screen NEGATIVE Ur Phencyclidine Scrn NEGATIVE Ur Amphetamines Screen NEGATIVE MDMA (Ecstasy) Screen NEGATIVE U Benzodiazepines Scrn NEGATIVE Urine Cocaine Screen NEGATIVE U Cannabinoids Screen NEGATIVE Ur Drug Screen Comment Ethyl Alcohol 10/20/21 20:15 WBC RBC Hgb Hct MCV MCH MCHC RDW Std Deviation RDW Coeff of [place] Plt Count MPV Immature Gran % (Auto) Neut % (Auto) Lymph % (Auto) [place] % (Auto) Eos % (Auto) Baso % (Auto) Absolute Neuts (auto) Absolute Lymphs (auto) Nucleated RBC % PT INR APTT Sodium Potassium Chloride Carbon Dioxide Anion Gap BUN Creatinine Estim Creat Clear Calc Est GFR (MDRD) Af Amer Est GFR (MDRD) Non-Af BUN/Creatinine Ratio Glucose Calcium Total Bilirubin Direct Bilirubin AST ALT Alkaline Phosphatase Troponin I High Sens Total Protein Albumin Globulin Urine Color Straw Urine Clarity Clear Urine pH 6.0 Ur Specific [place] 1.010 Urine Protein 30 H Urine Glucose (UA) 50 H Urine Ketones Negative Urine Occult Blood 10 H Urine Nitrite Negative Urine Bilirubin Negative Urine Urobilinogen Normal Ur Leukocyte Esterase Negative Urine RBC 0-5 SEEN Urine WBC 0 SEEN Ur Squamous Epith Cells 0 SEEN Urine Bacteria 0 SEEN Urine Mucus 0 SEEN Urine Opiates Screen Urine Methadone Screen Ur Barbiturates Screen Ur Phencyclidine Scrn Ur Amphetamines Screen MDMA (Ecstasy) Screen U Benzodiazepines Scrn Urine Cocaine Screen U Cannabinoids Screen Ur Drug Screen Comment Ethyl Alcohol ABG Data ABG results: ABG 10/20/21 20:22 Specimen Type ART Sample Site R Radial pH 7.07 L* Bicarbonate Actual 22.7 Total CO2 25 Base Excess -7 L O2 Saturation 100 H O2 % 100 ABG pCO2 78.4 H* ABG pO2 356 H* Jak Test Negative O2 Delivery Device Bagging Crit Call To/Read Back Yes Radiography Diagnostic Testing: Clinical Impression(s) from Imaging Studies Cervical Spine CT 10/20/21 20:00 IMPRESSION: Nasogastric tube coiled in the oropharynx. This should be removed and replaced. No evidence of cervical trauma. Small disc protrusions at C6-7 and C7-T1. Electronically Signed: Ximena Ritchie MD at 21:24 EDT Reading Location ID and State: [id number] / Tel , Service support , Chest X-Ray 10/20/21 20:01 IMPRESSION: 1. Endotracheal tube with its distal tip lying 10.7 cm above the mely. 2. Otherwise, no active cardiopulmonary disease. 3. No pneumothorax or hemopneumothorax. Electronically Signed: Edin Boles MD at 21:24 EDT , Abdomen/Pelvis CT 10/20/21 20:20 IMPRESSION: 1. Trace right pleural effusion. 2. Infrarenal AAA. 3. No evidence of trauma. Electronically Signed: Ximena Ritchie MD at 21:43 EDT Reading Location ID and State: [place] / Tel , Service support , Brain CT 10/20/21 20:20 IMPRESSION: Scalp hematoma. No acute intracranial findings. Electronically Signed: Ximena Ritchie MD at 21:16 EDT Reading Location ID and State: Tosha Ndiaye MD Tel , Service support , KUB X-Ray 10/20/21 20:21 IMPRESSION: Nonvisualized nasogastric tube. Nonobstructive abdomen. Electronically Signed: Ximena Ritchie MD at 21:31 EDT Reading Location ID and State: T[place]ha Ndiaye MD Tel , Service support , Discharge Plan Triage Chief Complaint: Unresponsive Other Complaint: CPR ED Provider: Sohan Munoz Dx/Rx/DC Orders Clinical Impression: Cardiac arrest with successful resuscitation, Hyperlipidemia, History of peripheral arterial disease, CHI (closed head injury), History of ME (myocardial infarction), Fall (on) (from) other stairs and steps, initial encounter, Alcohol intoxication with blood alcohol level 0.08-0.29, Aneurysm of infrarenal abdominal aorta, Pleural effusion, Acute respiratory failure with hypercapnia Prescriptions: No Action finasteride 5 mg tablet 5 mg PO DAILY Label Comments: TAKE 1 TABLET BY MOUTH AT BEDTIME tamsulosin 0.4 mg capsule 0.4 mg PO DAILY multivitamin Tablet 1 tab PO DAILY glucosamine-chondroitin 900 mg tablet 900 mg PO DAILY ascorbate calcium (vitamin C) 500 mg tablet 500 mg PO DAILY sertraline 100 mg tablet 100 mg PO DAILY isosorbide mononitrate 30 mg tablet extended release 24 hr 30 mg PO DAILY Qty: 90 3RF aspirin 81 mg Tablet,Delayed Release (Dr/Ec) 81 mg PO DAILY@0800 Qty: 0 0RF nitroglycerin 0.4 mg Tablet, Sublingual 0.4 mg sublingual Q5M PRN (Reason: Chest pain) Qty: 20 0RF clonazepam 1 mg tablet 1 mg PO QHS clopidogrel 75 mg tablet 75 mg PO DAILY Qty: 90 3RF lisinopril 5 mg tablet 5 mg PO DAILY Qty: 30 0RF atorvastatin 40 mg tablet 40 mg PO QHS Qty: 90 3RF carvedilol 3.125 mg tablet 3.125 mg PO BID Qty: 180 3RF Primary Care Provider: Isrrael Anna Referrals: Isrrael Anna MD [Primary Care Provider] - Disposition Disposition: Acute Care Hospital Discharge Location: [facility]
[2021-10-20] MEDS: 0.9% Normal Saline 1,000 ML 999 ML IV (23:51)
[2021-10-20] MEDS: Propofol 10MG/Ml 1,000 MG/100 ML Bottle 6.3 MG CONT INF (23:52)
[2021-10-21] MEDS: Potassium Chloride 10mEq/100mL 10 MEQ/100 ML IV.SOLN. 100 MEQ IV BOLUS ×2 (00:07→01:17)
[2021-10-21 00:20] VITALS: BP 151/83; PULSE 79; RESP 20; O2SAT 98
[2021-10-21 00:53] VITALS: PULSE 80; RESP 16; RESP 25; O2SAT 96
[2021-10-21 00:54] VITALS: BP 154/89; PULSE 80; RESP 22; O2SAT 97
[2021-10-21] MEDS: LORazepam 2 MG/ML Syringe IV (00:55)
[2021-10-21 01:51] VITALS: BP 144/120; PULSE 74; RESP 25; O2SAT 96
[2021-10-21 01:55] LABS: Blood Gas Specimen Type VEN; O2 Delivery Device Adult Vent; PEEP 5; RR 16; VBG BASE EXCESS 0 mmol/L (-1.0-3.5); VBG Bicarbonate 26 mmol/L (22-26); VBG PO2 55 mmHg (25-40); VBG SO2 86 % (50-70); VBG TCO2 27 mmol/L (23-33); VBG pH 7.35 (7.32-7.42)
--- NOTE | 2021-10-21 23:32 | CT_ITS ---
STUDY: PULMONARY AND CHEST CT ANGIOGRAPHY OF 0035 HOURS ON 10/21/2021 REASON FOR EXAM: 66-year-old male with chest pain. Evaluate for pulmonary thromboembolism. RADIATION DOSAGE (If Supplied By Facility): CTDIvol = ( 11.42 ) mGy, DLP = ( 536.82 ) mGycm TECHNIQUE: The examination was performed with the intravenous administration of IV 100mL [id number]-370. Post-processing of the angiographic images was performed, with multiplanar reformation and 3D reconstruction. Individualized dose optimization techniques were used for this CT. COMPARISON: None. FINDINGS: There is a mild thoracic kyphosis. Mild cardiomegaly. Mild mediastinal and minimal right hilar lymphadenopathy. Mild to moderate bilateral bronchial wall thickening; does this patient have a bilateral bronchitis or does the patient smoke? There is a small patchy 3.5 cm in diameter alveolar infiltrate in the posterior aspect of the right lower lobe--consider an alveolar pneumonia. There is a suggestion of non-occlusive thrombi in first and several second order branches of the right pulmonary artery in the right upper lobe. There are non-occlusive thrombi in several second-order branches of the left upper lobe and left lower lobe. The signs are compatible with bilateral pulmonary thromboembolism. There is no evidence of a thoracic aorta dissection or aneurysm. CT/CTA Chest W/WO Contrast IMPRESSION: 1. Findings compatible with bilateral pulmonary non-occlusive thromboembolism--detailed above. 2. No evidence of a thoracic aortic dissection or aneurysm. 3. Small patchy 3.5 cm in diameter alveolar pneumonia in the posterior aspect of the right lower lobe. 4. Mild cardiomegaly. 5. Mild to moderate bilateral bronchial wall thickening; does this patient had a bilateral bronchitis or does the patient smoke? 6. Mild thoracic kyphosis. Electronically Signed: Edin Boles MD at 1:47 EDT ,
== END 2021-10-21 01:56 | disposition short-term general hospital (02) ==
PROVIDERS: Emergency Provider Emergency Medicine; PCP Family Medicine; Visit Provider Emergency Medicine
DX: I46.9 Cardiac arrest, cause unspecified (principal); I71.8 Aortic aneurysm of unspecified site, ruptured; F10.129 Alcohol abuse with intoxication, unspecified; I73.9 Peripheral vascular disease, unspecified; J96.02 Acute respiratory failure with hypercapnia; E78.5 Hyperlipidemia, unspecified; I25.2 Old myocardial infarction; Y90.9 Presence of alcohol in blood, level not specified; J90 Pleural effusion, not elsewhere classified; I25.10 Atherosclerotic heart disease of native coronary artery without angina pectoris; N40.0 Benign prostatic hyperplasia without lower urinary tract symptoms; G47.33 Obstructive sleep apnea (adult) (pediatric); G25.81 Restless legs syndrome; Z79.899 Other long term (current) drug therapy; Z79.02 Long term (current) use of antithrombotics/antiplatelets; Z79.82 Long term (current) use of aspirin; Z87.891 Personal history of nicotine dependence; Z95.5 Presence of coronary angioplasty implant and graft; E66.9 Obesity, unspecified; S00.83XA Contusion of other part of head, initial encounter; W10.9XXA Fall (on) (from) unspecified stairs and steps, initial encounter; I45.10 Unspecified right bundle-branch block; Z68.31 Body mass index [BMI] 31.0-31.9, adult
CPT/HCPCS: 31500; 31720; 36600; 51702; 70450; 71045; 71275; 72125; 74018; 74177; 80048; 80076; 80307; 81001; 82077; 82803; 84484; 85025; 85610; 85730; 87811; 93005; 94002; 94003; 96365; 96366; 96368; 96375; 99251; 99285; J7030; Q9967; A4216; G0463; J3010